=== PATIENT | female | born 1945 | race Caucasian/White ===

== ENCOUNTER 2020-03-25 10:18 | Inpatient (IN) | payer OTHER ==
[2020-03-25] VITALS (44 sets, daily range): BP systolic 102–251; BP diastolic 66–138
[~2020-03-25] VITALS: Ht 157.5 cm; Wt 64.9 kg
[2020-03-25] MEDS ORDERED: ASPIR 8181 M1 PO (10:42)
[2020-03-25] MEDS ORDERED: VITAMIN B-121000 MC2 SUBLING (10:42)
[2020-03-25 10:50] LABS: ABSOLUTE NEUTROPHILS 7.2 thou/uL (1.4-8.2); BASOPHILS 0.9 % (0.0-2.0); HEMATOCRIT 47.8 % (37.0-47.0); HEMOGLOBIN 16.1 gm/dL (12.0-15.0); LYMPHOCYTES 20.9 % (24.0-44.0); MCHC 33.6 g/dL (28.0-37.0); MCV 95.2 fL (80.0-100.0); MONOCYTES 4.2 % (1.0-8.0); PLATELET COUNT 263 thou/uL (150-400); RBC 5.02 mil/uL (4.20-5.00); RDW 14.7 % (10.5-14.5); WBC 9.8 thou/uL (4.0-11.0)
[2020-03-25 10:56] LABS: ANION GAP 11 mmol/L (7-16); BUN 17 mg/dL (7-18); CALCIUM 8.8 mg/dL (8.5-10.1); CHLORIDE 103 mmol/L (98-107); CO2 23 mmol/L (21-32); CREATININE 1.1 mg/dL (0.6-1.0); GLUCOSE 95 mg/dL (74-106); POTASSIUM 3.8 mmol/L (3.5-5.1); SODIUM 137 mmol/L (136-145)
[2020-03-25 11:00] LABS: APTT 33.3 Seconds (24.5-32.8); PROTIME 10.6 Seconds (9.3-11.4)
[2020-03-25 11:06] LABS: ALBUMIN 4.2 g/dL (3.4-5.0); SGOT 13 U/L (15-37); SGPT 15 U/L (30-65); TOTAL BILIRUBIN 0.5 mg/dL (0.2-1.0); TOTAL PROTEIN 7.8 g/dL (6.4-8.2); TROPONIN-I <0.06 ng/mL (<0.06)
--- NOTE | 2020-03-25 11:36 | EKG ---
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
[2020-03-25 13:06] LABS: CHOLESTEROL 209 mg/dL (<200); HDL CHOLESTEROL 47 mg/dL (>40); LDL CHOLESTEROL 127 mg/dL (<100); TC:HDL 4.4 Ratio (Not establshd); TRIGLYCERIDE 176 mg/dL (<150); VLDL 35 mg/dL (<40)
[2020-03-25 13:26] LABS: TSH 3.645 uIU/mL (0.358-3.740)
--- NOTE | 2020-03-25 14:37 | NUR ---
PT ORIENTED TO ROOM AND UNIT. BED LOW AND LOCKED, SIDE RAILS UPX3, CALL LIGHT IN REACH AND TELE APPLIED. WILL CONTINUE TO ASSESS.
--- NOTE | 2020-03-25 16:21 | NUR ---
PT HAVING LEFT ARM WEAKNESS AND SLURRES SPEECH. STAT CALL DR. OLIVIA AND INSTRUCTED TO DISCONTINUE IV CARDENE AND GIVE 1 LITER BOLUS NS. START 20G IV IN RIGHT WRIST AND BOLUS NS. DR OLIVIA ASSESS PT AT BEDSIDE AND INSTRUCT TO LAY PT FLAT AND. PT'S LEFT SIDED WEAKNESS AND AD SLURRED SPEECH IMPROVE BLOOD PRESSURE INCREASE. ONCE SYMPTOMS RESOLVED INSTRUCTED TO GIVE 600MG PLAVIX. WILL CONTINUE TO ASSESS.
--- NOTE | 2020-03-25 17:35 | NUR ---
WILL KEEP PT NPO EXCEPT FOR THICKENED LIQUIDS UNTIL SPEECH EVALUATE PT IN THE AM.
--- NOTE | 2020-03-25 18:13 | NUR ---
INSTRUCTED TO KEEP PT LAYING FLAT THIS EVENING AND TO KEEP SBP BETWEEN 170-190. PT PROGRESSING TOWARDS GOALS.
[2020-03-26] VITALS (40 sets, daily range): BP systolic 111–212; BP diastolic 66–882
--- NOTE | 2020-03-26 06:16 | NUR ---
PT MAKING PROGRESS TOWARDS GOALS. SEE VS FOR BP VALUES. MAINTAINING PASSIVE HYPERTENSION (SBP GREATER THAN 160) PER DR. Silver. PT DENIES ANY COMPLAINTS. DID NOT SLIGHT LEFT ARM DRIFT OVERNIGHT THAT HAS NOT WORSENED OR IMPROVED. HAS DENIED ANY PAIN OR ANY HEADACHES. CONTINUE TO MONITOR.
--- NOTE | 2020-03-26 11:25 | 2DMMODE ---
[facility] [address] [place] [address] 2 D/M-MODE ECHOCARDIOGRAM Name: MARK PORTER Room #: 246-P ADM IN M.R.#: [id number] Admission: 03/25/20 Attend Phys: Diego Harris Discharge: Date of : 49 Report #: [id number] THIS REPORT FOR: cc: FAM - No family physician/PCP FAM - No family physician/PCP Surinder Duran MD ~ APPROVED REPORT Study performed: 03/26/2020 10:29:06 EXAM: Comprehensive 2D, Doppler, and color-flow Echocardiogram Patient Location: ICU Room #: 246 Status: routine BSA: 1.68 HR: 89 bpm BP: 172/98 mmHg Rhythm: NSR Other Information Study Quality: Good Indications CVA/TIA Hypertension/HDD Echo Enhancing Agent Indication: Rule out Shunt Agent(s) / Amount(s) Used: Agitated Saline 7 cc 2D Dimensions RVDd: 28.11 mm IVSd: 13.27 (7-11mm) LVOT Diam: 20.79 (18-24mm) LVDd: 48.63 mm PWd: 14.71 (7-11mm) Ascending Ao: 31.59 (22-36mm) LVDs: 31.11 (25-40mm) Aortic Root: 31.54 mm IVC: 16.00 mm Volumes Left Atrial Volume (Systole) Single Plane 4CH: 41.47 mL Single Plane 2CH: 31.68 mL LA ESV Index: 23.00 mL/m2 Aortic Valve [facility] [place] [place] [address] 2 D/M-MODE ECHOCARDIOGRAM Name: MARK PORTER Room #: 246-P [facility] IN M.R.#: [id number] Admission: 03/25/20 Attend Phys: Diego Chu Dec Discharge: Date of : 49 Report #: [id number] AoV Peak Ino.: 1.21 m/s AO Peak Gr.: 5.90 mmHg LVOT Max P.96 mmHg LVOT Max V: 0.86 m/s MAREG Vmax: 2.40 cm2 Mitral Valve E/A Ratio: 0.8 MV Decel. Time: 235.69 ms MV E Max Ino.: 0.81 m/s MV A Ino.: 1.06 m/s MV PHT: 68.35 ms IVRT: 147.64 ms Pulmonary Valve PV Peak Ino.: 0.88 m/s PV Peak Gr.: 3.09 mmHg Pulmonary Vein P Vein S: 0.58 m/s P Vein A: 0.21 m/s P Vein D: 0.32 m/s P Vein A Dur.: 101.5 msec P Vein S/D Ratio: 1.81 Left Ventricle The left ventricle is normal size. There is normal LV segmental wall motion. There is normal left ventricular wall thickness. The left ventricular systolic function is normal. The left ventricular ejection fraction is within the normal range. LVEF is 55-60%. Grade I - abnormal relaxation pattern. Right Ventricle The right ventricle is normal size. The right ventricular systolic function is normal. Atria The left atrium size is normal. Interatrial septum is intact without evidence of ASD or PFO. The right atrium size is normal. Aortic Valve The aortic valve is normal in structure. No aortic regurgitation is present. There is no aortic valvular stenosis. Mitral Valve The mitral valve is normal in structure. Trace mitral regurgitation. No evidence of mitral valve stenosis. Tricuspid Valve The tricuspid valve is normal in structure. There is no tricuspid [facility] [email or web address] [place] [address] 2 D/M-MODE ECHOCARDIOGRAM Name: MARK PORTER Room #: 246-P [facility] IN M.R.#: [id number] Admission: 03/25/20 Attend Phys: Diego Hardin Discharge: Date of : 49 Report #: [id number] valve regurgitation noted. Pulmonic Valve The pulmonary valve is normal in structure. There is no pulmonic valvular regurgitation. Great Vessels The aortic root is normal in size. IVC is normal in size and collapses >50% with inspiration. Pericardium There is no pericardial effusion. <Conclusion> The left ventricle is normal size. LVEF is 55-60%. Interatrial septum is intact without evidence of ASD or PFO. The aortic valve is normal in structure. The mitral valve is normal in structure. Trace mitral regurgitation. The tricuspid valve is normal in structure. The pulmonary valve is normal in structure. There is no pericardial effusion. <ELECTRONICALLY SIGNED> By: Surinder Duran MD 03/26/20 1123 1123 112 Surinder Duran MD /INF
--- NOTE | 2020-03-26 12:24 | HC ---
[facility] [place] [address] CONSULTATION Name: DORI MARTE Room #: 246-P ADM IN M.R.#: [id number] Admission: 03/25/20 Attend Phys: Diego Harris Discharge: Date of : 49 Report #: [id number] THIS REPORT FOR: cc: FAM - No family physician/PCP FAM - No family physician/PCP Jorje Bray MD ~ CC: [facility] physician/PCP Diego Tolentino We were asked to see Dorijose Marte by Dr. Tolentino. HISTORY OF PRESENT ILLNESS: The patient is a 74-year-old admitted for stroke. The patient was admitted on , but the patient states that weakness began approximately 2 days previously. The patient states she was trimming a tree and fell on her left knee, gave out. She complained of left-sided weakness from the lower and upper extremity and slurred speech. The patient states that her symptoms have improved, but are not perfect. Speech is intermittently normal and slurred currently. Evaluation included a head CT scan that showed no acute abnormality. CT angiography was done and this shows 50% lesion in the right carotid bulb and a high-grade stenosis of the origin of the left common carotid from the aortic arch, but no cervical carotid lesion. There is also moderate stenosis of the origin of the left subclavian artery. The patient has been treated with Plavix and aspirin. PAST MEDICAL HISTORY: Significant for hypertension. MEDICATIONS: The patient states she does not currently have a doctor and takes only low dose aspirin and B12 at home and that these are self prescribed. ALLERGIES: None known. SOCIAL HISTORY: The patient lives alone. She is a smoker. REVIEW OF SYSTEMS: I agree with the review of systems as documented in the Emergency Department with the only abnormalities being those in the history for the left-sided weakness and slurred speech. PHYSICAL EXAMINATION: GENERAL: The patient is in bed, seems comfortable. VITAL SIGNS: Temperature 36.5, heart rate 87, respiratory rate 17, blood pressure is elevated at 212/82, O2 sat 93 on room air. HEENT: No scleral icterus, no arcus. NECK: No mass. I did not hear any bruit. CHEST: Clear. HEART: Rhythm regular. ABDOMEN: Soft. [facility] [address] [place] [address] CONSULTATION Name: DORI MARTE Room #: [facility] IN M.R.#: [id number] Admission: 03/25/20 Attend Phys: Diego Harris Discharge: Date of : 49 Report #: [id number] EXTREMITIES: No clubbing, cyanosis or edema. Does have strong rather bounding pulses consistent with her hypertension. NEUROLOGIC: We note pronator drift on the left leg. Able to move, not clear that the strength is full. Upper extremity, right side stronger than the left. Speech is somewhat slurred, but very intelligible. 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 The carotid lesion is at the origin and not something generally amenable to surgery, whether this could be stented in the Interventional Radiology lab is another question. In general, recommendation would be for chronic anticoagulation with aspirin and Plavix, but I will confer with Neurology. Thank you for the consult. <ELECTRONICALLY SIGNED> By: Jorje Bray MD 03/26/20 1224 0832 1104 Jorje Bray MD /nt
--- NOTE | 2020-03-26 16:28 | NUR ---
INITIAL ASSESSMENT: Received consult. SW reviewed chart and spoke with nursing and attending physician. Pt was admitted from home after a fall, which resulted in left sided weakness. Neuro consulted for TIA v CVA. Pt's BP being monitored closely. 5N rehab physician evaluated pt for possible admission to inpt acute rehab. Awaiting therapy evals at this time. SW spoke with pt via phone. Introduced role of SW. Pt states she lives at home alone. Prior to admission, pt was independent with ADLs. No use of DME. Pt states she has stairs at home, but she does not have to use them. Pt's dtr and son-in-law live nearby and are able to assist pt as needed. No hx of services or post-acute placement. Pt does not currently have a PCP. Pt states she has been provided with a list of [facility] primary care groups for review. Pt agreeable with considering rehab if needed. SW is following to assist as needed with discharge planning.
--- NOTE | 2020-03-26 16:54 | NUR ---
5N CONSULT RECEIVED ON THIS Pt. Pt SEEN BY REHAB PHYSICIAN DR. VERMA TODAY. Pt BEING WORKED UP FOR STROKE. Pt HAS NOT YET BEEN SEEN BY PT OR OT SERVICES. Pt MAY BE CANDIDATE FOR 5N. WILL CONTINUE TO FOLLOW ALONG WITH THIS Pt SHE PROGRESSES. THANK YOU FOR THIS CONSULT.
--- NOTE | 2020-03-26 18:17 | NUR ---
PATIENT SEEMED MORE CONFUSED THIS PM THAN USUAL. SHE WILL CLIMB OUT OF THE BED IMPULSIVELY AND NOT EASILY REDIRECTED. SHE DENIES PAIN. ALERT TO PLACE AND TIME BUT NOT SITUATION AT THIS TIME. WILL CONT WITH PLAN OF CARE.
--- NOTE | 2020-03-26 18:41 | HC ---
[facility] [place] [address] CONSULTATION Name: MARK PORTER Room #: 246-P ADM IN M.R.#: [id number] Admission: 03/25/20 Attend Phys: Diego Harris Discharge: Date of : 49 Report #: [id number] THIS REPORT FOR: cc: JEROMY - No family physician/PCP JEROMY - No family physician/PCP Renny Tolentino MD ~ CC: JEROMY physician/PCP Diego Tolentino DATE OF SERVICE: 03/25/2020 HISTORY OF PRESENT ILLNESS: This is a 74-year-old female patient who was seen by me in the Emergency Room and I talked to Emergency Room physician. Subsequently, the patient got admitted to ICU. The patient does not see any physician on a regular basis. She does not take her blood pressure and when she came to Emergency Room, her blood pressure was very high. It was 251/138. She does not know when was the last time she took her blood pressure. Two days ago, she had developed weakness on the left side and some neglect and she fell. It came in suddenly and finding is pretty consistent with CVA. I had talked to Emergency Room physician as his notes indicated I told them to do a CT angiogram after giving her a fluid bolus and a CT angiogram does not show any stenosis, then they can lower the blood pressure, but otherwise try to not lower it and keep it around 200 systolic at least. After the patient got admitted, unfortunately her blood pressure got lowered to about 129 and then I got a stat call from the nurse. I went and saw the patient and the patient was basically flaccid on the left side. Her blood pressure was running on the monitor about 114 systolic. I made the patient flat and asked the nurses to give 1 liter of fluid bolus, which they did. The patient started improving immediately and she was able to do antigravity and some anti-forced movements and subsequently, I talked to the nurses again, they indicated that she has improved even further and feel back to the baseline. She still has weakness on the left side, but that is not much different than what she came in with. REVIEW OF SYSTEMS: Positive for what looks like uncontrolled hypertension for long time. She looks like had a stroke on the left side with neglect and weakness there. That was a relevant 14-point review of system. PAST MEDICAL HISTORY: Positive for hypertension. FAMILY HISTORY: Noncontributory. SOCIAL HISTORY: She smokes. [facility] [address] [place] [address] CONSULTATION Name: MARK PORTER Room #: 246-P [facility] IN M.R.#: [id number] Admission: 03/25/20 Attend Phys: Diego Harris Discharge: Date of : 49 Report #: [id number] PHYSICAL EXAMINATION: The patient's examination was carried out many times. On my last examination, she still has weakness on the left side, but that was about the same when I saw her in the Emergency Room. She has improved from the profound weakness. IMPRESSION: This patient most likely had right hemispheric cerebrovascular accident. She did have a CT angiogram done and that showed right carotid stenosis, although it is not critical, but she has critical carotid stenosis on the left side where it arises from the aorta. I told the nurses to keep her blood pressure at least 160 what it should be. They can try to keep it around 162-200. Even after the fluid bolus, the blood pressure has come only to about 150 systolic, but her symptoms have mostly resolved, indicating she can tolerate that. I gave her Plavix. I gave her the loading dose. I will also give her aspirin. Main management is that we should lower the blood pressure slowly, but not very fast. We will try to get an MRI done. This patient is not a TPA candidate because she had a stroke 2 days ago and she fortunately improved pretty significantly after the bolus. A total of about 50 minutes was spent taking care of this patient today and majority of that time was spent counseling and coordinating care. <ELECTRONICALLY SIGNED> By: Renny Tolentino MD 03/26/20 1841 [id number] 16 Renny Tolentino MD /nt
[2020-03-27] VITALS (16 sets, daily range): BP systolic 136–202; BP diastolic 66–156
--- NOTE | 2020-03-27 04:29 | NUR ---
PATIENTS CARES WERE ASSUMED AT SHIFT CHANGE. PATIENT WAS ASSESSED AND MEDS WERE PASSED. PATIENTS BP HAD A JUMP THIS SHIFT 190/103. THIS PATIENT HAD NO IV ACCESS DUE TO THE MEDS ON THE DEC THE IV SHOUD HAVE BEEN REPLACED. HYDROLOZINE 10 MG WAS GIVEN. RESPRITORY SIS COME tight iv just started on he right forarm for iv push medications this patient is not in restrans as documented that is an error hourly rounds were done . the bed is in a low and lock position
--- NOTE | 2020-03-27 11:03 | NUR ---
Nutrition: pt admitted S/P fall with left sided weakness. Neuro indicates Right CVA. Wound risk indicated however nsg reports no wounds present. ST following for mild/moderate dysphagia currently requiring mech altered diet. Pt reports she likes most foods and is not picky. Indicates UBW as 150# and current weight is 147#. 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 Elevated Chol and Trigs per labs, if pt eating >75% of meals, rec add heart healthy diet restrictions. Low risk.
--- NOTE | 2020-03-27 11:04 | NUR ---
ASSUMED CARE @ 0700 03/27/20, PT ASSESSMENTS AND VSS COMPLETE PER ORDERS AND DOCUMENTED. DR VIVAR HERE TO ROUND, ORDERS FOR M/S TELE TRANSFER PUT IN. RN VOICES THAT PT SBP IN THE 170-180, RN TOLD ONLY TREAT BP IF SBP ABOVE 200. SPEECH THERAPIST HERE TO EVALUATE AND TREAT. WILL CONT TO MONITOR.
--- NOTE | 2020-03-27 15:21 | NUR ---
MAYELA reviewed chart and spoke with attending physician. Pt remains in ICU. PT/OT ordered to evaluate pt. JenaeN is following for possible admission to in acute rehab. Will need insurance authorization. MAYELA contacted occupational therapist rehab manager to determine if they can accept pt. Awaiting input from . MAYELA is following to assist as needed with discharge planning.
--- NOTE | 2020-03-27 18:42 | NUR ---
PT CARE ASSUMED APPROX 1830. PT ALERT AND ORIENTED X4. DENIES PAIN AND SOA. DENIES ANY NEEDS AT THIS TIME. NO DISTRESS NOTED.
[2020-03-28] VITALS (8 sets, daily range): BP systolic 173–224; BP diastolic 72–150
--- NOTE | 2020-03-28 08:01 | NUR ---
ASSUMED PT CARE AT 1900, PT IS AWAKE, ALERT AND ORIENTEDX4, MAKES NEEDS KNOWN, DENIES PAIN OR SOB, ASSESSMENTS CHARTED, BP ELEVATED, TEST DESKMAN NOTIFIED, MEDICATIONS GIVEN ORDERED, LEFT SIDED WEAKNESS, REMAINED STABLE THROUGH THE NIGHT, PASSED ON REPORT TO DAY NURSE
[2020-03-28] MEDS ORDERED: CLOPIDOGREL75 MG PO (09:06)
[2020-03-28] MEDS ORDERED: LIPITOR 20 MG T20 M1 PO (09:06)
[2020-03-28] MEDS ORDERED: ASA5UEC PO (09:07)
[2020-03-28] MEDS ORDERED: NORVASC5 MG PO (09:07)
--- NOTE | 2020-03-28 13:22 | NUR ---
rec call from phys to transport patient to [facility] for possible stent placement, intercranial stenosis. sp with Anna at [facility] transfer team. Faxed scanned id medical cards and face sheet. Radiology uploaded to cloud. Anna returned call to casemgt and reports phys at [facility] and Dr Swartz spoke. Patient to determine medical management of patient first here at [facility] with plavix. At this time transfer on hold. 5N notified patient is not transferring at this time. Chart copy with chart and id medical cards scanned on chart.
--- NOTE | 2020-03-28 14:59 | NUR ---
PATIENT SEEN BY DR. VERMA AND IS A CANDIDATE FOR ACUTE REHAB. PATIENT CAN BE ACCEPTED TO 5N/ACUTE REHAB WHEN MEDICALLY STABLE PENDING INSURANCE AUTHORIZATION AND BED AVAILIBILITY. WILL CONTINUE TO FOLLOW. GMAT TUTOR INFORMED. THANK YOU FOR THIS REFERRAL.
--- NOTE | 2020-03-28 17:54 | NUR ---
PT CARE ASSUMED APPROX 0700. ASSESSMENT CHARTED. PT DENIES PAIN AND SOA. VS WITHIN TARGETED PARAMETERS. PT TOLERATING POC. CLINICAL UPDATE GIVEN TO PT'S DAUGHTER ANDREIA. SHE DENIES QUESITONS OR CONCERNS REGARDING PT'S POC AFTERWARDS. PT DENIES WELL. TRANSFER TO [facility] CANCELED AT THIS TIME. PT AWARE. UP WITH MIN ASSIST TO BSC. NO DISTRESS NOTED.
[2020-03-29 00:17] VITALS: BP 186/84
[2020-03-29 03:33] VITALS: BP 194/89
--- NOTE | 2020-03-29 05:56 | NUR ---
ASSUMED CARE OF PATIENT AT 1900. UPON ASSESSMENT PATIENT STATED THAT SHE HAD TAKEN OUT HER IV BECAUSE IT WAS ALL READY COMING OUT. PATIENT WAS ABLE TO PIVOT TO BEDSIDE COMMODE AND REPOSITION SELF IN BED WITH 1A. SHORTLY BEFORE 0300 CALLED FOR AN UPDATE ON PATIENT. RECEIVED ORDERS TO ADMINISTER NS BOLUS AND START CONTINUOUS FLUIDS. PHYSICIAN ALSO REINFORCED ORDERS TO NOT TREAT HYPERTENSION UNLESS SBP >200 AND THAT PATIENT SHOULD LIE FLAT. WILL PASS INFORMATION ON TO NEXT SHIFT. AFTER SALINE BOLUS, PATIENT WAS ABLE TO LIFT LEFT ARM WHICH WAS AN IMPROVEMENT FROM ONLY A WEAK LEFT HAND SECOND FLOOR OPERATOR BEFROE BOLUS. PATIENT PROGRESSING SLOWLY TOWARDS GOALS.
[2020-03-29 07:30] VITALS: BP 213/95
--- NOTE | 2020-03-29 08:37 | NUR ---
ASSUMED CARE OF PT AT SHIFT CHANGE, A&0X4, IS NOT IMPULSIVE, LEANING TO THE LEFT, IS FRUSTRATED, DOES WELL FOOD SET UP AND BIB. NO ISSUES/NEEDS AT THIS TIME. SEE SEPARATE INTERVENTIONS FOR ASSESSMENTS. CARDIAC MONITORED. ENCOURAGED HER TO USE CALL LIGHT FOR ANY NEEDS AND SHE CAN. SHE MENTIONS ALL STAFF HAVE BEEN EXCELLENT.
--- NOTE | 2020-03-29 10:09 | NUR ---
ENGINEERING TEAM SUPERVISOR TO SEE PATIENT. PT UNAVAILBLE AT THIS TIME. I WILL RETURN LATER THIS AFTERNOON.
--- NOTE | 2020-03-29 11:04 | NUR ---
NOTED D/C: NEURO SPOKE W/PT AND SAID NEITHER [facility] OR NEITHER [facility] WILL TAKE PT AT THIS TIME; NOT A CANDIDATE HE ALSO SAID HE WANTED HER FLAT ALL DAY (SBP 200S THIS A.M.) AND WANTED HER B/P TO MAINTAIN >160. LET PHYSICIAN KNOW WHO WROTE AN ORDER TO D/C
[2020-03-29 11:30] VITALS: BP 168/99
--- NOTE | 2020-03-29 11:39 | NUR ---
PER DR. VIVAR, PLAN FOR PATIENT TO D/C TO [facility] THIS DATE. NEWCOMER HOSTESS SPOKE WITH PATIENT REGARDING REHAB AT [facility]. PATIENT HAS BEEN VERY HAPPY WITH THE NURSING CARE AND THERAPY RECEIVED HERE AT [facility] AND LIVES CLOSE TO HOSPITAL. PATIENT EXPRESSED THAT SHE WOULD LIKE TO RETURN TO [facility] FOR ACUTE REHAB IF NEEDED AT D/C FROM [facility]. PATIENT GIVEN BROCHURE WITH LIAISON'S CARD ATTACHED. PATIENT APPROVED PLAN FOR LIAISON TO CONTACT [facility] REGARDING TRANSFER BACK TO [facility] FOR REHAB CARE AT DISCHARGE. PATIENT WOULD LIKE TO MAKE SURE THAT HER DAUGHTER WAS AWARE/INVOLVED IN PLANNING. PRECISION CROP MANAGER CONTACTED AND INFORMATION ABOVE RELAYED. THANK YOU FOR THIS REFERRAL.
--- NOTE | 2020-03-29 11:56 | NUR ---
The attending has spoken with [facility] transfer team again this morning. Dr. Royal Marte can accept the pt pending a bed later today on their neuro ICU. Chart copy is being updated to send with the pt. Transfer from being completed and signed by the pt. [facility] to be arranged once bed confirmed and nursing gives report. Pt aware and updated her family.
--- NOTE | 2020-03-29 11:59 | NUR ---
AUTOMOBILE DETAILER TO SEE PATIENT. PT CONCERNED ABOUT POSSIBLE TRANSFER. PATIENT STATES "THEY ARE NOT GOING TO GET RID OF ME WITHOUT TELLING ME WHAT IS GOING ON". PT APPEARS AGGITATED. THIS RN TRIES A DE-ESCALATES THIS SITUATION WITH SUCCESS. I EXPLAINED THAT I WOULD CHECK INTO IT.I ALSO EXPLAINED WE WOULDNT BE TRANSFERRING HER ANYWHERE WITHOUT HER CONSENT AND HER FAMILY CONTACTED. I LEFT THE ROOM, I SPOKE WITH THE PATIENTS NURSE AND SHE STATED THEY ARE IN FACT TRANSFERRING HER. I WILL CONTACT DR PERSAUD OR DR VIVAR AND ASK FOR THEM TO COME TO ROOM AND EXPLAIN THE SITUATION.
--- NOTE | 2020-03-29 12:18 | NUR ---
GROUP CAPTAIN RETURNS TO ROOM. DR VIVAR ON TELEPHONE EXPLAINING PLAN OF CARE. PT VERBALIZES UNDERSTANDING AND AGREES WITH TRANSFER. TOY TRAINS AND ACCESSORIES SALESPERSON ALSO AT BEDSIDE AND STATES SHE WILL BE CALLING HER DAUGHTER. I EXPLAINED TO PATIENT THAT NO PROCEDURE WOULD BE COMPLETED WITHOUT AM EXPLANATION OF RISKS AND BENEFITS PRIOR TO HER AUTHORIZATION. PT UNDERSTANDS. AWAITING TRANSFER
[2020-03-29 16:30] VITALS: BP 177/97
[2020-03-29 20:34] VITALS: BP 198/87
[2020-03-30] VITALS (9 sets, daily range): BP systolic 168–212; BP diastolic 58–109
--- NOTE | 2020-03-30 06:50 | NUR ---
No change in neuro status. 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 BP at MN 212/105 with HR in the 80's ,SR. Dr. Tolentino notified , IV fluids dc'd and CARDIOLOGY TEACHER calleed for prn BP med. Lopressor 2.g mg IV given at 0030 repeat BP after med 203/90. This am BP of 208/93 with HR of 83. CARDIOLOGY TEACHER notified and another dose of Lopressor 2.5 mg given. BP rechecked 186/85 with HR of 71. Received a call from [facility]' transfer RN (Elinor )to get an update on pt. and to inform me that there is no bed available still at this time. Tylenol given at HS for back pain from lying flat on bed with good relief. Also assisted to reposition for comfort. Voided per bedpan and had one episode of bowel incontinence stating she fell asleep and dind't realize she had to go. Will continue to monitor.
[2020-03-30 11:16] LABS: CALCIUM 8.4 mg/dL (8.5-10.1); CREATININE 0.8 mg/dL (0.6-1.0)
[2020-03-30 11:23] LABS: POTASSIUM 2.6 mmol/L (3.5-5.1)
--- NOTE | 2020-03-30 16:25 | NUR ---
ON-GOING ASSESSMENT: CM REVIEWED CHART AND SPOKE WITH TRANSFER TEAM AT [facility] [phone]. PLAN IS FOR PT TO STILL TRANSFER TO [facility] WHEN A BED IS AVAILABLE AND THEY HAVE THE CONTACT TO THE NURSES STATION ON 2N AND WILL NOTIFY NURSE. POSSIBLE BED AVAILABLE OVER THE WEEKEND. CM UPDATED PATIENT AND HER DAUGHTER HEAVEN [phone]. [facility] FORM IS ON THE CHART AND WILL NEED TO BE FAXED TO [facility] [phone], THEN CONTACT [facility] [phone] TO ARRANGE TRANSPORT. COMPLETE TRANSFER FORM WELL. CHART COPY WILL NEED TO BE SENT WITH PT.
--- NOTE | 2020-03-30 19:54 | NUR ---
ASSUMMED PT CARE AT APPROXIMATELY 0700. PT A&O X4. ASSESSMENT CHARTED. FALL PRECAUTIONS IN PLACE. PT DENIES HAVING CHEST PAIN. PT DENIES HAVING SOB. PT STATED SHE HAD BACK PAIN. PT RECEIVED ANALGESICS. PT STATED ANALGESICS HELPED RELIEVE PAIN. BP CONTROLED BETWEEN PARAMETERS SET BY NEURO. PER CASE MANAGEMENT, THERE IS NOT A BED AVAILABLE AT [facility]. INFORMED DR. VIVAR OF PT'S HYPOKALEMIA. DR. VIVAR ENTERED NEW ORDERS. NEW ORDERS IMPLEMENTED. PT COMFORTABLE IN BED. PT DENIES HAVING FURTHER CONCERNS. EDUCATED PT ABOUT POC. PT STATED UNDERSTANDING AND DENIED HAVING FURTHER QUESTIONS. VITAL SIGNS STABLE. BLOOD SUGARS STABLE.
[2020-03-31] VITALS: BP 188/99
[2020-03-31 04:30] VITALS: BP 180/104
--- NOTE | 2020-03-31 04:41 | NUR ---
ASSUMED PATIENT CARE AT 1845. VITAL SIGNS STABLE WITH PATIENT HAVING NO COMPLAINTS OF PAIN OR NAUSEA. BLOOD PRESSURE WITHIN PROVIDERS PARAMETERS THROUGHOUT SHIFT. PATIENT FULLY ALERT AND ORIENTED THROUGHOUT SHIFT. INITIAL NIH SCORED AT EIGHT WITH NO CHANGE THROUGHOUT SHIFT. SWALLOW PRECAUTIONS FOLLOWED. FREQUENT SKIN CARE FOR INCONTINENCE WITH PATIENT FREQUENTLY REPOSITIONING SELF IN BED. POSSIBLE TRANSFER TODAY. CONTINUE PLAN OF CARE.
[2020-03-31 06:12] LABS: CALCIUM 8.4 mg/dL (8.5-10.1); CREATININE 0.9 mg/dL (0.6-1.0); POTASSIUM 3.2 mmol/L (3.5-5.1)
[2020-03-31 08:00] VITALS: BP 150/93
[2020-03-31 12:00] VITALS: BP 173/100
[2020-03-31 16:00] VITALS: BP 174/101
--- NOTE | 2020-03-31 17:22 | NUR ---
ASSESSMENT CHARTED. PT ALERT AND ORIENTED. RECEIVED SCHEDULED PAIN MED FOR BACK PAIN. PARTICIPATED IN OCCUPATION THERAPY. STILL WAITING FOR AN OPEN BED AT [facility]. NO NEW ORDERS. WILL CONTINUE TO MONITOR.
[2020-03-31 20:20] VITALS: BP 193/87
[2020-04-01 00:15] VITALS: BP 193/84
[2020-04-01 04:20] VITALS: BP 187/90
[2020-04-01 08:00] VITALS: BP 202/70
[2020-04-01 12:26] VITALS: BP 167/77
[2020-04-01 16:00] VITALS: BP 194/92
--- NOTE | 2020-04-01 19:39 | NUR ---
ASSUMED CARE AT CHANGE OF SHIFT. ALERT X4, SLURRED SPEECH PRESANT, DENIES SOB, DENIES CHEST PAIN OR HEADACHE. CHRONIC BACK PAIN MANAGED WITH SCHEDULED PAIN MED. PT COMPLAINT WITH LAYING FLAT C EXCEPTION OF MEALS AND MEDS. PT UNDERSTANDS PER HER CONVERSATION C NEUROLOGIST SHE WILL DC TO REHAB. PT HOPES TO DC TOMORROW. CALL LIGHT AND PERSONAL ITEMS IN REACH.
[2020-04-01 20:33] VITALS: BP 190/79
[2020-04-02 05:20] VITALS: BP 183/88
--- NOTE | 2020-04-02 05:38 | NUR ---
ASSUMED CARE OF PT AROUND 0130 . IV RESTARTED RIGHT FA. PT INC, OF URINE IN LG AMTS I THE BED. INSTRUCTED ON FALL PRECAUTIONS. BED ALARM ON. PT LAYING FLAT ORDERED. BP CONTINUES TO BE ELEVATED PER PARAMETERS..
--- NOTE | 2020-04-02 06:33 | NUR ---
PT PROGRESSING SLOWLY TOWARDS D/C. BP STIOLL ELEVATED BUT WITHIN PARAMETERS. HOB FLAT. PT IN GOOD SPIRITS. SHE HAS SOME MOVEMEBT TO LLE. NEW IV PLACED RIGHT HAND 22GU. HRR. LCTA AND UNLABORED ON RA. BED DOWN CALL LIGHT IN REACH BED ALARM IS ON.
[2020-04-02 07:30] VITALS: BP 169/65
[2020-04-02 09:45] LABS: CALCIUM 9.2 mg/dL (8.5-10.1); CREATININE 0.7 mg/dL (0.6-1.0)
[2020-04-02 09:47] LABS: POTASSIUM 2.9 mmol/L (3.5-5.1)
[2020-04-02 11:30] VITALS: BP 186/87
--- NOTE | 2020-04-02 15:30 | HC ---
[facility] [place] [address] CONSULTATION Name: MARK PORTER Room #: 214-P ADM IN M.R.#: [id number] Admission: 03/25/20 Attend Phys: Diego Harris Discharge: Date of : 49 Report #: [id number] THIS REPORT FOR: cc: JEROMY - No family physician/PCP JEROMY - No family physician/PCP Royal Martinez MD ~ CC: [facility] physician/PCP Diego Tolentino DATE OF SERVICE: 03/26/2020 HISTORY OF PRESENT ILLNESS: The patient is a 74-year-old white female who was admitted with left-sided weakness after a mechanical fall. She was apparently trimming a tree when her left knee gave out. She had problems with left hand weakness and was dropping objects. Upon admission, she was noted to have uncontrolled hypertension. MRI of the brain was obtained, which showed acute lacunar infarcts in the right garcia radiata. She had blood pressures that were up to 196/102 as well as 212/102. She is currently in the intensive care unit being treated for malignant hypertension. Neurology has been consulted. She is noted to have left internal carotid artery stenosis, 90% at the origin. PAST MEDICAL HISTORY: Includes hypertension, noted to be malignant hypertension. HABITS: History of tobacco abuse. Current every day smoker, one-half pack per day, history of alcohol use on special occasions. MEDICATIONS: Please see the full medication listing. SOCIAL HISTORY: Lives in a house, 3 story, but stay on the main floor without steps. Daughter and mbenybiy-da-gyy are 5 minutes away. REVIEW OF SYSTEMS: Did not offer any current complaints of chest pain, shortness of breath, or abdominal discomfort. She notes that she has when she attempts to get up. PHYSICAL EXAMINATION: GENERAL: She is a pleasant 74-year-old small statured white female seen in the intensive care unit. She is currently being closely monitored regarding her blood pressure with readings as noted above. VITAL SIGNS: Last reading was 204/99. HEENT: Facies revealed a mild depressed left nasolabial fold. EOMs appeared to be full. She has slightly slurred speech. EXTREMITIES: She has functional range of motion of both upper and lower extremities, left upper extremity coordination appeared decreased with [facility] [address] [place] [address] CONSULTATION Name: MARK PORTER Room #: 214-P [facility] IN M.R.#: [id number] Admission: 03/25/20 Attend Phys: Diego Harris Discharge: Date of : 49 Report #: [id number] and fine finger dexterity. Strength is probably a grade 4-/5. Left lower extremity is probably a grade 4-/5. Right upper and right lower extremity appeared to have functional range of motion and strength without obvious focal weakness. She has not gotten up yet as far as therapies with her medical precautions. ASSESSMENT: A 74-year-old white female with the following problem list: 1. Acute infarcts, right brain garcia radiata. 2. Left-sided weakness with fall. 3. Malignant hypertension, currently being monitored in the intensive care unit. 4. Left internal carotid artery stenosis, 90% at the origin. 5. Acute renal insufficiency. 6. Tobacco abuse. 7. Lives alone, but has close family support. RECOMMENDATIONS: Therapy evaluations will be undertaken as she further medically stabilizes. She is certainly may warrant an acute in-hospital inpatient rehabilitation stay as she further medically stabilizes. We will be glad to follow along with you regarding her rehab therapy needs. <ELECTRONICALLY SIGNED> By: Royal Martinez MD 04/02/20 1530 [id number] Royal Martinez MD /[facility]
[2020-04-02 15:32] VITALS: BP 146/92
--- NOTE | 2020-04-02 16:50 | NUR ---
Plan for [facility] is cancelled per phys. spoke with [facility] they evaled and accepting clinically. They are in process of seeking auth. Sp with patient and dtr Juanita they are in agreement with planned for acute rehab [facility]. Reviewed process for [facility] and dc timeframe with dtr. will update dtr regarding authorization of unit.
--- NOTE | 2020-04-02 17:53 | NUR ---
PATIENT IS A CANDIDATE FOR ACUTE REHAB. PATIENT HAS EXPRESSED DESIRE TO COME TO [facility] FOR ACUTE REHAB STAY. PATIENT'S INSURANCE CONTACTED AND AUTHORIZATION REQUESTED THIS DATE. WILL AWAIT INSURANCE DECISION. FISH MACHINE FEEDER UPDATED. THANK YOU FOR THIS REFERRAL.
--- NOTE | 2020-04-02 18:02 | NUR ---
[facility] 0700. ALERT X4, DENIES PAIN, DENIES SOB, GRADULE LOWER OF BP PER DR VIVAR/NEUROLOGIST. SBM [address] IN BEDSIDE RECLINGER WITH PT. PT UNDERSTAND SHE IS BEING ASSESSED FOR REHAB. CONTIENT TO BEDPAN OR COMMODE. CALL LIGHT AND PERSONAL ITEMS IN REACH.
[2020-04-02 19:53] VITALS: BP 160/82
[2020-04-03 05:20] VITALS: BP 127/77
--- NOTE | 2020-04-03 05:30 | NUR ---
ASSUMED PT CARE AT 1900. PT IS ALERT AND ORIENTED, NO SIGN OF DISTRESS NOTED IN PT. PT IS STABLE. ELEVATED BLOOD PRESSURE NOTED. FALL PRECAUTION IN PLACE. ASSESSMENT COMPLETED AND DOCUMENTED. DENIES ANY PAIN. CALL LIGHT WITHIN REACH. SCHEDULED MEDS ADMINISTERED TO PT. TOLERATED PO INTAKE. CONTINUE TO MONITOR PT. DENIES ANY NEEDS AT THIS TIME.
[2020-04-03 08:10] VITALS: BP 182/101
[2020-04-03 11:55] VITALS: BP 168/97
--- NOTE | 2020-04-03 15:29 | NUR ---
patient to transfer to [facility] today to room 511. Notified dtr and discussed bringing clothes and team meeting.
--- NOTE | 2020-04-03 15:45 | NUR ---
Assumed pt care this am, left sided weaknees noted. FAll precautions in place. Continent of both bowel and bladder, kika used the bed cho and was able to work with PT and OT, sat on the recliner and used the commode. POC followed with no signs or verbalizations of distress noted. Diet and medications are well tolerated. REport given to [facility] nurse pt is being dc and going to [facility] in room 511
== END 2020-04-03 16:43 | DRG 64 ==
LOC: ER 10:18 → ICU 12:47 → EROBS 12:47 → ICU 13:52 → 2N 03-27 08:25
PROVIDERS: Emergency Medicine; ADMIT Hospitalist; ATTEND Hospitalist
DX: I63.81 Other cerebral infarction due to occlusion or stenosis of small artery (principal); N17.0 Acute kidney failure with tubular necrosis; I69.354 Hemiplegia and hemiparesis following cerebral infarction affecting left non-dominant side; F17.210 Nicotine dependence, cigarettes, uncomplicated; I65.22 Occlusion and stenosis of left carotid artery; S80.02XA Contusion of left knee, initial encounter; E87.6 Hypokalemia; X58.XXXA Exposure to other specified factors, initial encounter; Y93.89 Activity, other specified; Z79.82 Long term (current) use of aspirin; Y92.89 Other specified places as the place of occurrence of the external cause; Y99.8 Other external cause status; Z79.4 Long term (current) use of insulin; Z82.49 Family history of ischemic heart disease and other diseases of the circulatory system; Z79.899 Other long term (current) drug therapy
CPT/HCPCS: 10078; 10081

== ENCOUNTER 2020-04-03 10:43 | Inpatient (IN) | payer OTHER ==
[~2020-04-03] VITALS: Ht 157.5 cm; Wt 68.0 kg
[~2020-04-03 10:43] MED LIST: ASA5UEC PO; ASPIR 8181 M1 PO; CLOPIDOGREL75 MG PO; LIPITOR 20 MG T20 M1 PO; NORVASC5 MG PO; VITAMIN B-121000 MC2 SUBLING
[2020-04-03 17:30] VITALS: BP 181/893
[2020-04-03 18:30] VITALS: BP 173/83
--- NOTE | 2020-04-03 18:46 | NUR ---
Patient admitted at 1645 for Acute Infarct with left sided weakness and fall. She is alert and oriented x's 4, LSCTA, BS x's 4, abd soft and non-tender, skin is clean, warm dry and intact. Patient's blood pressure elevated at 181/93, Pulse 85; she is asymptomatic. FIELD PROJECT MANAGER Nu gave T.O. for prn. This was not utilized as patient's BP noted to be 173/83, P 85. Patient has scheduled BP medications at 2100. On-coming RN notified, to continue to monitor. Patient pleasant and cooperative. She needs assist x's 1-2 with gait belt. She can stand and pivot with assist. Patient expressed worry over the possibility of having urinary accidents due to "staff not coming to help." Patient was on another Unit prior to this admission, reports "staff wouldn't come when I called." Educated patient to report this to paramedic supervisor if this happens. Patient voices an understanding.
[2020-04-03 19:15] VITALS: BP 151/92
--- NOTE | 2020-04-04 02:14 | NUR ---
ONE TO TWO PERSONS NEEDED TO ASSIST OUT OF BED DUE TO RIGHT SIDED WEAKNESS PIVOT TO BSC WITH GAIT BELT, PATIENT STATES SHE APPRECIATES US COMING TO HELP HER QUICKLY SHE NEEDED TO VOID RIGHT AWAY. NORVASC GIVEN, BP MOTED TO BE HIGHER EARLIER IN THE AFTERNOON. LARGE LOOSE STOOL TIMES ONE. FBS 98 AT HS, NO TREAMENT. TYLENOL OBTAINED FOR BACK PAIN RATED AT 5/10
[2020-04-04 05:32] LABS: HEMATOCRIT 45.6 % (37.0-47.0); HEMOGLOBIN 15.2 gm/dL (12.0-15.0); MCHC 33.3 g/dL (28.0-37.0); MCV 96.1 fL (80.0-100.0); RBC 4.74 mil/uL (4.20-5.00); RDW 14.1 % (10.5-14.5); WBC 8.9 thou/uL (4.0-11.0)
[2020-04-04 06:04] LABS: CALCIUM 8.7 mg/dL (8.5-10.1); CREATININE 0.9 mg/dL (0.6-1.0); POTASSIUM 3.3 mmol/L (3.5-5.1)
[2020-04-04 08:00] VITALS: BP 149/88
--- NOTE | 2020-04-04 10:42 | NUR ---
ASSUMED CARE AT 0700. PATIENT IS ALERT AND ORIENTED X4. PATIENT HAS LEFT SIDED WEAKNESS. PATIENT IS UP TO THE BSC TO VOID ABMER COLORED URINE. LUNGS ARE CLEAR. ABD IS SOFT WITH BSX4. PATIENT IS ON THIN LIQUIDS. PATIENT IS UP IN BED FOR MEALS. FALL AND SAFETY PROTOCOLS IN PLACE. DENIES PAIN AT THIS TIME. CONTINUES TO PROGRESS SLOWLY. WILL CONTINUE TO MONITER.
--- NOTE | 2020-04-04 10:49 | NUR ---
Case opened to follow for dc planning. Pt known to cm from acute inpatient stay. Pt admitted to acute rehab due to acute infarcts with lt sided paralysis. The pt is a&ox4 and her speech has improved. She is motivated to work with therapies. Clipper Operator spoke with her dtr Juanita today to re-introduce the cm role and discuss potential dc planning needs. Juanita aware of team conf on Tuesdays and notes that she and her 12 year old dtr will be with the pt at tn. She is setting up her home office at the pt's home and will be staying with her this summer. She is aware that they may need to hire in some private duty support as well. HH and dme referrals discussed. The pt did not use any dme prior to her stroke and was indep with gait and adl's. She does not have a hh or snf history. Juanita was provided with [facility] and Dr. Trinidad office numbers to work on setting up a new PCP appt as the pt did not have a pcp prior to admission. CM to meet dtr at the hospital entrance at noon today with HH listing/private duty resources as dtr is bringing pt additional clothing from home. The pt lives in a 3 story home with laundry in the basement. Her dtr indicates that the pt has a bedroom and bath on the main level and she would stay on this level. Dtr to take over laundry, homemaker chores and errands for the pt. Pt's dtr to measure the doorways as well and is open to a home eval or coming in for training with therapy as needed. Support provided. Therapy evals are underway. Will f/u with the pt and her dtr next week after team conf.
[2020-04-04 19:21] VITALS: BP 136/80
--- NOTE | 2020-04-05 04:22 | NUR ---
ASSESSMENT: PT REMAINS ALERT AND ORIENT TIMES THREE. UPPER LEFT EXTREMITY FLACCID. DENIES PAIN. SOB AND N/V. VSS, AFEBRILE. TAKES MEDS WITH APPLE SAUCE. UP WITH 2 ASSIST. SLEPT WELL DURING THE NIGHT. C/O SLIGHT HEADACHE, TYLENOL GIVEN WITH GOOD RELIEF. SLOW PROGRESS TOWARDS DC GOAL, WILL CONTINUE TO MONITOR.
--- NOTE | 2020-04-05 05:57 | NUR ---
ASSESSMENT: PCT ACCOMPANIED PT TO BSC WITH MAIA. ACCORDING TO PCT BENI, PT WAS ASSISTED TO THE FLOOR WITH EASE. PT ATTEST TO THE FACT THAT SHE WAS NOT HURT. DID NOT HURT HERSELF. THERE WERE NO WOUNDS, REDNESS, BROKEN SKIN NOTED OVER PT'S BODY. PT STATE THAT HER RIGHT LEG JUST "GAVE OUT" AND "BUCKLED". PT IS BACK IN BED AND APPRAISAL SPECIALIST KATHY WITH BE NOTIFIED OF SAID EVENT.
[2020-04-05 08:00] VITALS: BP 138/80
[2020-04-05 09:17] VITALS: BP 138/80
--- NOTE | 2020-04-05 14:30 | NUR ---
cm received phone call from daughter katelynn rt needing cm to set up primary care dr at [facility] for mom and dr office said case repairer has to set up appointment that is what elana said yesterday. Education that i can fax referral but until have team meeting and set date not going to be able to set an appointment for her to go to, " oh i thought they would see her there, i was told she needs this done david"/katelynn. re-education that cm can touch base with [facility] once have dc date and set up appointment. she cant have outpt appointment and be in acute rt insurance. " ok thank you "/katelynn.
--- NOTE | 2020-04-05 18:39 | NUR ---
ASSUMED CARE OF PT AT 0715. PT IS A&OX4. IS ON ROOM AIR. REPORTED BACK PAIN THIS AM THAT WAS MANAGED WITH PAIN MEDS & OTHER THERAPEUTIC TECHNIQUES. HAS LEFT SIDED FLACCIDITY IN UPPER EXTREMITY & WEAKNESS ON LOWER EXTREMITY. RIGHT LEG MATTHEW. IS UP WITH MAX ASSIST OF 2, GB, PIVOT TO BSC. FALL PRECAUTIONS & HOURLY ROUNDING MAINTAINED THIS SHIFT. PT HAS GOOD BED MOBILITY. IS ABLE TO REPOSITION SELF & PULL SELF UP IN BED WITH SOME ASSISTANCE. IS STABLE. IS CURRENTLY LYING IN BED. WATCHING TV. CALL LIGHT WITHIN REACH. WILL CONTINUE TO MONITOR.
[2020-04-05 19:50] VITALS: BP 163/93
[2020-04-05 20:00] VITALS: BP 130/49
--- NOTE | 2020-04-06 05:02 | NUR ---
UP TO BSC WITH MAX ASSIST DUE TO LEFT HEMIPARESIS. 2 LOOSE STOOLS OVERNIGHT. PLEASANT
[2020-04-06 08:08] VITALS: BP 142/81
[2020-04-06 09:00] VITALS: BP 142/81
--- NOTE | 2020-04-06 14:14 | NUR ---
ASSUMED CARES AT 0700. PT AWAKE, ALERT AND ORIENTED*4. C/O MILD LOW BACK PAIN, REPOSITIONED FROM CHAIR TO BED. VITALS REMAIN STABLE. PT CONTINUES TO HAVE LEFT SIDED HEMIPARESIS. ABD SOFT AND ROUND, *1 LOOSE STOOL TODAY. PT UP WITH 2 MAX ASSIST, GB AND PIVOT TRANSFERS. PARTICIPATED IN ALL THERAPIES AND TOLERATED WELL. Q1H VISUAL CHECKS. CALL LIGHT WITHIN REACH. FALL PRECAUTIONS IN PLACE
[2020-04-06 20:30] VITALS: BP 139/83
--- NOTE | 2020-04-07 03:09 | NUR ---
UP TO BSC WITH MAX 1P TRANSFER DUE TO LEFT SIDED WEAKNESS. PLEASANT, SWALLOWING MEDS WHOLE WITH APPLESAUCE. HS BLOOD SUGAR = 121
--- NOTE | 2020-04-07 14:30 | NUR ---
ASSUMED CARES AT 0700. PT AWAKE, ALERT AND ORIENTED*4. C/O BACK PAIN, PAIN MEDICATION ADMINISTERED NEEDED. VITALS REMAIN STABLE. PT CONTINUES TO HAVE LEFT SIDED HEMIPARESIS. UP WITH MAX ASSIST, GB AND W/C AND TOLERATES WELL. PARTICIPATED WELL IN ALL THERAPIES. Q1H VISUAL CHECKS. CALL LIGHT WITHIN REACH. FALL PRECAUTIONS IN PLACE
[2020-04-07 19:09] VITALS: BP 140/86
[2020-04-07 19:45] VITALS: BP 167/80
--- NOTE | 2020-04-08 01:49 | NUR ---
ASSESSMENT: PT REMAIN ALERT AND ORIENT TIMES FOUR. PT STATE THAT SHE GETS BORED BECAUSE THERE'S NOTHING TO DO BESIDES LAY AROUND IN BED. PT LIKE HER THERAPY SESSIONS AND WISH THAT THEY WERE THROUGH THE DAY. LEFT SIDE FLACCID, LEFT LE WEAKNESS. UP WHT MAX ASSISTANCE TO BSC. DENIES PAIN, SOB AND N/V. GOOD CALL LIGHT WITHIN REACH. SLOW PROGRESS TOWARDS DC GOALS, WILL CONTINUE TO MONITOR.
[2020-04-08 08:00] VITALS: BP 159/77
--- NOTE | 2020-04-08 15:09 | NUR ---
ASSUMED CARES AT 0700. PT AWAKE, ALERT AND ORIENTED*4. DENIES PAIN AT THIS TIME. VITALS REMAIN STABLE. PT CONTINUES TO HAVE LEFT SIDED HEMIPARESIS. UP WITH 1 MOD-MAX ASSIST, PIVOT TRANSFERS. AMBULATING THE HALLWAYS THIS MORNING AND AFTERNOON, STATED THAT SHE FEELS BORED AND WOULD LIKE 3HRS OF THERAPY SHE IS DETERMINED TO GET STRONGER. Q1H VISUAL CHECKS. CALL LIGHT WITHIN REACH. FALL PRECAUTIONS IN PLACE
--- NOTE | 2020-04-09 00:22 | NUR ---
PT ALERT AND ORIENTED X 4. LEFT HEMIPARESIS NOTED. PT TAKES MEDS IN APPLESAUCE WITHOUT DIFFICULTY. REFUSED MIRALAX AT HS. PT DENIES PAIN OR DISCOMFORT. BED ALARM ON FOR SAFETY. PT APPEARS TO BE SLEEPING ON HOURLY ROUNDS.
[2020-04-09 08:20] VITALS: BP 137/84
--- NOTE | 2020-04-09 17:37 | NUR ---
ASSUMED CARE OF PT AT 0700. PT IS A&OX4 AND VITAL SIGNS ARE STABLE. PT DENIES PAIN AND PARTICIPATED IN SCHEDULED THERAPIES. LOWER EXTREMITY EDEMA +1 NOTED ON ASSESSMENT, PT ENCOURAGED TO ELEVATE LEGS WHEN AT REST. LOOSE STOOLS REPORTED BY BEDSPREAD FOLDER, STOOL SOFTENERS HELD THIS SHIFT. ACCU CHECKS D/C. HR REGUALR, LUNG SOUNDS CLEAR, AND BOWEL SOUNDS ACTIVE. PT CALLS APPROPRIATELY, FALL PRECAUTIONS IN PLACE AND NURSING WILL CONTINUE TO MONITOR.
[2020-04-09 19:00] VITALS: BP 150/78
--- NOTE | 2020-04-10 00:46 | NUR ---
PT ALERT AND ORIENTED X 4. LEFT SIDE FLACCID. PT TAKES MEDS IN APPLESAUCE WITHOUT DIFFICULTY. PT C/O BACK PAIN. TYLENOL GIVEN AT HS WITH RELIEF OF PAIN VERBALIZED. BED ALARM ON FOR SAFETY. PT APPEARS TO BE SLEEPING ON HOURLY ROUNDS.
[2020-04-10 08:20] VITALS: BP 144/84
--- NOTE | 2020-04-10 12:47 | NUR ---
team meeting, recommendation: e-stim started with therapy on left upper ext. vital stim with speech therapy as well. have daughter start looking into 24hr health care assistant for dc and or possible stay with daughter katelynn. re team with anticipated date 04/23/2020
--- NOTE | 2020-04-10 16:18 | NUR ---
ASSUMED CARE OF PT AT 0700. PT IS A&OX4 AND VITAL SIGNS ARE STABLE. PT DENIES PAIN THIS SHIFT. STOOL SOFTNER HELD FOR LOOSE STOOLS. PT TO BE ENCOURAGED TO USE KATE LAP BOARD WHEN OUT OF BED. NO IV ACCESS. FALL PRECAUTIONS IN PLACE AND NURSING WILL CONTINUE TO MONITOR.
[2020-04-10 19:25] VITALS: BP 157/90
--- NOTE | 2020-04-11 01:24 | NUR ---
ASSUMED CARE AT APPROX 1900 EVENING 04/10. PT LYING IN BED WITH HEAD OF BED ELEVATED AT CHANGE OF SHIFT. PT ALERT AND ORIENTED X4, PLEASANT AND COOPERATIVE. PT STATED SHE IS MAKING PROGRESS WITH THERAPY. PT CALLED OUT FOR HER HS MEDS AND TOOK WITH APPLESAUCE WHOLE TOLERATING WELL. PT WITH SOMEWHAT UNCOORDINATED MOVEMENTS TO ARMS AND LEGS AND STATED SHE MOVES AROUND IN BED ALOT. BED ALARM ON AND CALL LIGHT IN REACH. WILL CONTINUE TO MONITOR.
[2020-04-11 05:41] LABS: HEMOGLOBIN 13.7 gm/dL (12.0-15.0); MCHC 33.5 g/dL (28.0-37.0); MCV 95.6 fL (80.0-100.0); RBC 4.29 mil/uL (4.20-5.00); RDW 13.9 % (10.5-14.5)
[2020-04-11 06:00] LABS: CALCIUM 8.5 mg/dL (8.5-10.1); CREATININE 0.9 mg/dL (0.6-1.0); POTASSIUM 3.1 mmol/L (3.5-5.1)
[2020-04-11 08:00] VITALS: BP 155/91
--- NOTE | 2020-04-11 17:59 | NUR ---
PT CARE ASSUMED AT 0700. A&Ox4. PT DAUGHTER ON THE FLOOR ALL DAY TO LEARN PT'S NEW ROUTINE. NO COMPLAINTS OF PAIN. CONTINUE TO USE LAPBOARD WHEN PT IS IN THE WHEELCHAIR. BEDSIDE COMMODE. FALL PROTOCOL IN PLACE. POTASSIUM LOW, RECEIVED 2 DOSES OF POTASSIUM. REDRAW DONE AT 1700. POTASSIUM BACK IN NORMAL RANGE. Q2 TURNS WHEN IN BED. CALL LIGHT IN REACH. WILL CONTINUE TO MONITOR.
[2020-04-11 20:01] VITALS: BP 162/94
[2020-04-12 09:10] VITALS: BP 151/84
--- NOTE | 2020-04-12 15:23 | NUR ---
ASSUMED CARES AT 0700. PT AWAKE, ALERT AND ORIENTED*4. DENIES PAIN AT THIS TIME. VITALS REMAIN STABLE. CONTINUES TO HAVE LEFT SIDED HEMIPARESIS. UP WITH 1 MIN-MOD ASSIST, PIVOT TRANSFERS. TOLERATED WELL. PARTICIPATED WELL IN ALL THERAPIES. Q1H VISUAL CHECKS. CALL LIGHT WITHIN REACH. FALL PRECAUTIONS IN PLACE
[2020-04-12 20:31] VITALS: BP 155/94
--- NOTE | 2020-04-13 04:31 | NUR ---
RECIEVED CARE OF THIS PATIENT AT 1900. PATIENT ALERT AND ORIENTED X4. DENIES PAIN. L SIDE FLACCID. CALLED OUT AT 2014 FOR HER NIGHT TIME MEDS, MEDS WERE GIVEN. SLEPT MOST OF THE NIGHT.
[2020-04-13 07:30] VITALS: BP 152/86
--- NOTE | 2020-04-13 11:31 | NUR ---
Nutrition: pt admitted to rehab unit S/P acute CVA with left sided weakness. ST following for mild to moderate dysphagia and modified diet need. Meds/labs reviewed. Stable weights reported. PO intake of meals variable but overall 50-100%. Pt is able to order own meals. No nutrition interventions planned at this time-consider low risk.
--- NOTE | 2020-04-13 14:40 | NUR ---
ASSUMED CARES AT 0700. PT AWAKE, ALERT AND ORIENTED*4. VITALS REMAIN STABLE. PT C/O LOW BACK PAIN, TYLENOL ADMINISTERED NEEDED. LEFT SIDE REMAINS FLACCID. PULSES 2/2. PT UP WITH 1-2 ASSIST, PIVOT TRANSFERS TO W/C OR BED. PARTICIPATED IN ALL THERAPIES AND TOLERATED WELL. Q1H VISUAL CHECKS. CALL LIGHT WITHIN REACH. FALL PRECAUTIONS IN PLACE
[2020-04-13 19:26] VITALS: BP 149/85
--- NOTE | 2020-04-14 05:28 | NUR ---
ASSUMED CARE AT 1900. DURING ASSESSMENT, ABOUT 2029, PT ASKED ABOUT GETTING HER HS MEDS, SAYING SHE NEEDED THEM AT 2099. DENIED PAIN, NAUSEA, OR SOB. CALLED APPROPRIATELY TO USE BSC, HEAVY ONE ASSIST USING GAIT BELT. NO OTHER CONCERNS, WILL CONTINUE TO MONITOR.
[2020-04-14 07:30] VITALS: BP 151/90
--- NOTE | 2020-04-14 12:32 | HC ---
[facility] [place] [address] CONSULTATION Name: MARK PORTER Room #: 511-P ADM IN M.R.#: [id number] Admission: 04/03/20 Attend Phys: Royal Martinez MD Discharge: Date of : 49 Report #: [id number] THIS REPORT FOR: cc: JEROMY Ruiz family physician/PCP JEROMY - Sara family physician/PCP Cezar Ayala PhD ~ CC: Royal PINZON physician/PCP DATE OF SERVICE: 04/07/2020 BEHAVIORAL STATUS EXAM ATTENDING PHYSICIAN: Royal Martinez MD CLINICAL PRESENTATION: The patient is a 74-year-old female admitted to the [facility] with left-sided weakness and following a fall. She was trimming a tree when her left knee gave out. She described having had problems with left handed weakness and was dropping things. On admission, she was noted to have uncontrolled hypertension. MRI of the brain revealed an acute lacunar infarction in the right garcia radiata. Blood pressure was very high. She was in the Intensive Care Unit for malignant hypertension. Worsening of symptoms in the left upper extremity developed. 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 A complete description of her medical condition and history can be found in her medical record. Neuropsychological consultation was requested to provide assistance in the assessment of cognitive and emotional status and provide recommendations and services. Prior to this most recent medical event, she was living independently in her own home. She has a daughter that lives nearby and is planning to stay with her following her discharge. The patient had one child. 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 She is a college graduate. She does not report a history of treatment for depression or anxiety. TECHNIQUES UTILIZED: Clinical interview, review of medical records, staff consultation and behavioral observation, mini mental status exam 2 standard version, clock drawing and brief categories, brief verbal fluency assessment. EXAMINATION FINDINGS: The patient was alert and cooperative with the assessment. She accurately described events surrounding her admission. There [address] [address] CONSULTATION Name: MARK PORTER Room #: 511-P [facility] IN M.R.#: [id number] Admission: 04/03/20 Attend Phys: Royal Martinez MD Discharge: Date of : 49 Report #: [id number] is no evidence of aphasia. Her thoughts are logical and goal oriented. There is no evidence of thought disorder. She does not report auditory or visual hallucinations. She describes her symptoms to primarily include decreased appetite, although she appears fidgety and restless. She does not report difficulty with memory, word finding or anxiety/depression. Her performance on the MMSE 2 brief version was within normal limits with a raw score of 14/16. She was 3/3 for initial registration, 5/5 for orientation to time, 5/[address] and 1/3 for immediate recall of 3 items after a brief time delay and distraction. Performance on the MMSE 2 standard version is within normal limits with a raw score of 28/30. She was 5/5 for serial sevens, 2/2 for naming, 1/1 for repetition, 3/3 for comprehension, 1/1 for reading, writing and being able to copy a simple geometric design. Clock drawings within normal limits. Letter fluency was in the average range with a T score of 45, percentile rank of 31. Category fluency was within the average range with a T score of 55, percentile rank of 69. The patient is showing a good recovery in regard to neurocognitive functioning. A mild deficit in memory and immediate recall may be contributing to her presentation. She reported a history of tobacco abuse, which she plans to discontinue. She does not report feelings of restlessness or impulsive behavior as a result of the stroke. Increased assistance will be necessary to help compensate for motor deficits. Cognitive functioning appears well maintained. She has subtle to mild deficits noted. Her mood is very pleasant and personable which will contribute to good adjustment. 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 RECOMMENDATIONS: She will likely require assistance with independence to the extent of deficits and left upper and lower extremity weakness. Compensatory strategies for memory along with reassurance and support about her recovery will be a benefit. Her daughter is described as very supportive which will assist her overall recovery. [address] [address] CONSULTATION Name: MARK PORTER Room #: 511-P [facility] IN M.R.#: [id number] Admission: 04/03/20 Attend Phys: Royal Martinez MD Discharge: Date of : 49 Report #: [id number] Thank you very much for allowing me to provide the consultation on this patient. <ELECTRONICALLY SIGNED> By: Cezar Ayala, PhD 04/14/20 1232 1532 [id number] Cezar Ayala, PhD /nt
--- NOTE | 2020-04-14 15:50 | NUR ---
ASSUMED CARE OF PT AT 0700. PT IS A&OX4 AND VITAL SIGNS ARE STABLE. REPORTS THAT LOOSE STOOLS ARE RESOLVING. DENIES PAIN AT THIS TIME. ARM BOARD IN PLACE WHEN PT OOB IN W/C. CALLS APPROPRIATELY FOR ASSISTANCE. FALL PRECAUTIONS IN PLACE AND NURSING WILL CONTINUE TO MONITOR.
[2020-04-14 20:09] VITALS: BP 150/90
--- NOTE | 2020-04-15 04:28 | NUR ---
PATIENT ABLE TO CALL FOR MEDICATIONS APPROPRIATELY AROUND 2029, REQUESTED MEDICATIONS TO BE GIVEN AT 2099. PATIENT ABLE TO GET UP TO BSC WITH GB AND X2 PERSON ASSIST. NO ACUTE EVENTS OVERNIGHT.
[2020-04-15 08:00] VITALS: BP 138/79
--- NOTE | 2020-04-15 15:10 | NUR ---
ASSUMED CARE OF PT AT 0700. PT IS A&OX4 AND VITAL SIGNS ARE STABLE. PT CALLS APPROPRIATELY FOR ASSISTANCE AND MEDICATIONS. REPORTS SOFT FORMED STOOLS AT THIS TIME. KATE BOARD IN PLACE WHEN OOB. DAUGHTER ON UNIT THIS SHIFT, DAUGHTER VERBALIZES AND DEMONSTRATES APPROPRIATE UNDERSTANDING OF EDUCATION PROVIDED FOR PLANS TO DISCHARGE HOME. FALL PRECAUTIONS IN PLACE AND NURSING WILL CONTINUE TO MONITOR.
[2020-04-15 20:35] VITALS: BP 154/86
--- NOTE | 2020-04-16 02:45 | NUR ---
PATIENT ASSESSED AND IS ALERT X 4. SKIN WARM AND DRY. RESP EVEN AND UNLABORED. HAS A STROKE AND HER LEFT SIDE IS VERY FLACCID ON HER ARM. IS UNBALANCED AT TIMES WHEN SHE [place] [facility] NEEDS 2 PERSON ASSIST WITH WALKER AND GAIT BELT. NO SKIN ISSUES NOTED. CALLS OUT FOR MEDS APPROPRIATELY. TAKES MEDS WHOLE WITH APPLESAUSE. ABDOMEN SOFT WITH + BS. HAS LEFT SIDE HEMIPARESIS ONTED. O ROOM AIR. DENIES ANY PAIN. NO LOOSE STOOLS THIS SHIFT SO FAR. CONT PLAN OF CARE.SHE REMENBER TO ASK FOR HER MEDICATION. DENIES ANY NEEDS. SLEPT WELL LAST NIGHT.
[2020-04-16 06:46] LABS: ABSOLUTE NEUTROPHILS 3.7 thou/uL (1.4-8.2); BASOPHILS 1.2 % (0.0-2.0); EOSINOPHILS 4.4 % (0.0-3.0); HEMATOCRIT 41.6 % (37.0-47.0); HEMOGLOBIN 13.8 gm/dL (12.0-15.0); LYMPHOCYTES 30.7 % (24.0-44.0); MCH 31.9 pg (26.0-34.0); MCHC 33.1 g/dL (28.0-37.0); MCV 96.3 fL (80.0-100.0); MONOCYTES 7.6 % (1.0-8.0); PLATELET COUNT 241 thou/uL (150-400); POLYS 56.1 % (36.0-66.0); RBC 4.31 mil/uL (4.20-5.00); RDW 13.9 % (10.5-14.5); WBC 6.5 thou/uL (4.0-11.0)
[2020-04-16 07:42] LABS: CALCIUM 8.7 mg/dL (8.5-10.1); CREATININE 0.8 mg/dL (0.6-1.0); POTASSIUM 3.3 mmol/L (3.5-5.1)
[2020-04-16 09:00] VITALS: BP 148/87
[2020-04-16 19:22] VITALS: BP 170/82
--- NOTE | 2020-04-16 19:44 | NUR ---
ASSUMED CARE OF PT AT 0700. PT IS A&OX4 AND VITAL SIGNS ARE STABLE. PT DENIES PAIN THIS SHIFT, PARTICIPATED IN SCHEDULED THERAPIES. CALLED APPROPRIATELY FOR MEDICAITONS. DAUGHTER ON UNIT, ASSISTS PATIENT APPROPRIATELY. KATE BOARD ON W/C WHEN OOB. SOFT LOOSE STOOLS NOTED THIS SHIFT. FALL PRECAUTIONS IN PLACE AND NURSING WILL CONTINUE TO MONITOR.
--- NOTE | 2020-04-16 23:34 | NUR ---
ASSUMED CARE AT APPROX 1900 EVENING 04/11. PT LYING IN BED WITH HEAD OF BED ELEVATED RESTING COMFORTABLY. PT ALERT AND ORIENTED X4, PLEASANT AND COOPERATIVE. PT DENIED C/O PAIN. PT SLEPT WELL. BED ALARM ON THROUGHOUT NIGHT AND CALL LIGHT IN REACH.
--- NOTE | 2020-04-17 01:18 | NUR ---
assumed care at approx 1930 evening 04/16. pt lying in bed with head of bed elevated, alert and oriented x4, pleasant and cooperative. pt called out for her hs meds and took with yogurt tolerating well. pt appears to be sleeping soundly with hourly rounding checks. bed alarm on and call light in reach. will continue to monitor.
[2020-04-17 08:00] VITALS: BP 144/77
--- NOTE | 2020-04-17 10:22 | NUR ---
ASSUMED CARE OF PT AT 0700. PT IS A&OX4 AND VITAL SIGNS ARE STABLE. REPORTS SLEPT WELL LAST NIGHT. ABLE TO TURN HERSELF WHILE IN BED. C/O BACK PAIN AT NIGHT PRN TYLENOL HELPED. PT DENIES PAIN NOW. PARTICIPATED IN SCHEDULED THERAPIES. CALLED APPROPRIATELY FOR MEDICATIONS. UP WITH MAX ASSIST WITH PIVOT. KATE BOARD ON W/C WHEN OOB. SOFT LOOSE STOOLS THIS AM. OFFERED SUPPORTIVVE CARE. ENCOURAGED PT TO VOICE HER NEEDS. DISCUSSED ABOUT CARE PLAN FOR TODAY. ENCOURAGED DEEP BREATHING. PT SMOKED PRIOR ADMISSION AND PLAN TO QUIT. PT DENIES NEEDS FOR NICOTINE PATCH AND SAID I CAN STOP SMOKING. AWARES SMOKING CONTRIBUTES TO HER STROKE. FALL PRECAUTIONS IN PLACE AND NURSING WILL CONTINUE TO MONITOR.
--- NOTE | 2020-04-17 14:22 | NUR ---
team meeting, ne with hh ( pt, ot, st, nursing and bathaid). 24hr supervision and ability day program.
--- NOTE | 2020-04-17 16:45 | NUR ---
FAXED REFERRAL TO [facility] FOR A WHEELCHAIR FOR HOME SPOKE WITH [employer] IN INTAKE THEY RECEIVED REFERRAL AND WILL HAVE WHEELCHAIR DELIVERED PRIOR TO PT'S DISCHARGE 04/23.
[2020-04-17 19:28] VITALS: BP 146/84
--- NOTE | 2020-04-18 00:33 | NUR ---
assumed care at approx 1900 evening 04/17. pt lying in bed with head of bed elevated resting and watching tv. pt alert and oriented x4, pleasant and cooperative. pt stated she had a good day with therapy. pt called out for hs meds and took with yogurt tolerating well. pt up to bsc for bm tonight. pt appears to be sleeping soundly with hourly rounding checks. bed alarm on and call light in reach. will continue to monitor.
[2020-04-18 08:00] VITALS: BP 137/84
--- NOTE | 2020-04-18 08:34 | NUR ---
ASSUMED CARE OF PT AT 0700. PT IS A&OX4 AND VITAL SIGNS ARE STABLE. REPORTS PT DENIES PAIN NOW. PARTICIPATED IN SCHEDULED THERAPIES. CALLED APPROPRIATELY FOR MEDICATIONS. UP WITH MAX ASSIST WITH PIVOT. KATE BOARD ON W/C WHEN OOB. SOFT LOOSE STOOLS THIS AM. OFFERED SUPPORTIVVE CARE. ENCOURAGED PT TO VOICE HER NEEDS. DISCUSSED ABOUT CARE PLAN FOR TODAY. ENCOURAGED DEEP BREATHING. REASSESSMENT PER CHART. MORNING MEDS GIVEN ONE AT THE TIME WITH APPLE SAUCE. FALL PRECAUTIONS IN PLACE AND NURSING WILL CONTINUE TO MONITOR. PT IS UP IN WC AND WATCHING TV.
--- NOTE | 2020-04-18 11:01 | NUR ---
FAXED REFERRAL TO [facility] SPOKE WITH MANINDER IN INTAKE SHE RECEIVED REFERRAL AND WILL ACCEPT BUT NEEDS PCP. SHI (MAYELA) REACHED OUT TO DR. SPARROW'S OFFICE AND HE WILL ACCEPT PT APPT SET FOR 04/25 AT 1045. NOTIFIED MANINDER AT [facility] THAT PT HAS PCP. ANTICIPATE DC 04/23.
--- NOTE | 2020-04-18 14:45 | NUR ---
Patient participated in community reintegration on 04/18/20 with OT. Refer to documentation by OT.
--- NOTE | 2020-04-18 15:27 | NUR ---
Patient participated in community reintegration on 04/18/20 with OCCUPATIONAL THERAPY. Refer to documentation by LUCHO HARDIN.
[2020-04-18 20:25] VITALS: BP 167/88
--- NOTE | 2020-04-19 04:37 | NUR ---
ASSUMED CARE OF PT FROM DAY SHIFT , PT UP TO BSC HAD LOOSE BROWN STOOL , NO CONCERNS VOICED , SLEPT THROUGHOUT HOURLY ROUNDS NO CHANGES NOTED, WILL CONITINUE WITH CURRENT PLAN OF CARE.
[2020-04-19 05:44] LABS: ABSOLUTE NEUTROPHILS 3.6 thou/uL (1.4-8.2); BASOPHILS 1.2 % (0.0-2.0); EOSINOPHILS 4.6 % (0.0-3.0); HEMATOCRIT 40.4 % (37.0-47.0); HEMOGLOBIN 13.7 gm/dL (12.0-15.0); LYMPHOCYTES 33.4 % (24.0-44.0); MCH 32.6 pg (26.0-34.0); MCHC 33.8 g/dL (28.0-37.0); MCV 96.3 fL (80.0-100.0); PLATELET COUNT 241 thou/uL (150-400); POLYS 53.8 % (36.0-66.0); RBC 4.19 mil/uL (4.20-5.00); WBC 6.7 thou/uL (4.0-11.0)
[2020-04-19 05:57] LABS: CALCIUM 8.6 mg/dL (8.5-10.1); CREATININE 0.8 mg/dL (0.6-1.0); POTASSIUM 3.2 mmol/L (3.5-5.1)
[2020-04-19 08:00] VITALS: BP 146/83
--- NOTE | 2020-04-19 11:25 | NUR ---
ASSUMED CARE AT 0700. PATIENT IS ALERT AND ORIENTED X4. PATIENT'S LEFT SIDE IS FLACCID. PATIENT LUNGS ARE CLEAR. ABD IS SOFT WITH BSX4. UP IN W/C AND OUT TO THE DINGING ROOM FOR MEALS. UP WITH ASSIST OF 1 STAFF AND GAIT BELT TO THE BATHROOM TO VOID ELYSIA COLORED URINE. FALL AND SAFETY PROTOOCLS IN PLACE. DENIES PAIN AT THIS TIME. CONTINUES TO PROGRESS TOWARDS D/C GOALS. WILL CONTINUE TO MONITER.
--- NOTE | 2020-04-19 14:58 | NUR ---
ability pinky rx giving to manpower development specialist so that MD can sign and cm will fax it back. this for after hh needs are completed.
[2020-04-19 19:53] VITALS: BP 167/86
--- NOTE | 2020-04-20 03:46 | NUR ---
CALLING APPROPRIATELY FOR MEDS AND FOR MOD ASSIST UP TO BSC. CONTINUES TO HAVE SMALL UNFORMED BOWEL MOVEMENTS. LEFT SIDE WEAK, ABLE TO MOVE SELF UP IN BED WHILE LYING DOWN
--- NOTE | 2020-04-20 11:21 | NUR ---
Nutrition: pt seen per followup. Continues on modified diet and NMES with ST. Not ready for upgraded diet yet. Intake is good, average 70% of meals. Stable weights. Pt c/o diarrhea and felt it was due to applesauce with meds. Suggested yogurt which she agreed to. Continue as low nutrition risk.
--- NOTE | 2020-04-20 12:14 | NUR ---
ASSUMED CARE AT 0700. PATIENT IS ALERT AND ORIENTEDX4. PATIENT HAS LEFT SIDED FLACCIDITY. PATIENT LUNGS ARE CLEAR , ABD IS SOFT WITH BSX4. UP IN THE W/C FOR MEALS IN THE DINING ROOM. UP TO THE BATHROOM TO VOID ELYSIA COLORED URINE. FALL AND SAFETY PROTOCOLS IN PLACE. DENIES PAIN. CONTINUES TO PROGRESS TOWARDS D/C GOALS. WILL CONTINUE TO MONITER.
--- NOTE | 2020-04-20 13:47 | PLAN ---
[facility] [place] [address] REHAB UNIT PLAN OF CARE Name: MARK PORTER Room #: 511-P ADM IN M.R.#: [id number] Admission: 04/03/20 Attend Phys: Royal Martinez MD Discharge: Date of : 47 Report #: [id number] THIS REPORT FOR: //name// CC: Royal Martinez [facility] physician/PCP DATE OF SERVICE: 04/06/2020 PROGRESS CARE AND OVERALL PLAN OF CARE SUBJECTIVE: The patient is seen back today in followup. She was in no distress. Pleasant, temperature 36.2, pulse 84, respirations 16, and blood pressure 142/81. She continues to have dense left upper extremity flaccid plegia. Left lower extremity strength is probably a grade 3 maybe 3+. We are utilizing a hemilap board. She does have some mild subluxation of the left shoulder. No pain with range of motion or dysvascular changes. She has been working in therapies with transfers at a max assist level, max assist to try to step 1 foot. In occupational therapy, lower body dressing is mod assist. In speech therapy, the patient is on a mechanical soft with all liquids. She has moderate memory deficits. ASSESSMENT: 1. Lacunar cerebrovascular accident with left hemiparesis. 2. Intracranial stenosis. 3. Left ICA 90% stenosis. 4. Malignant hypertension. 5. Left ventricular hypertrophy. 6. Acute renal insufficiency, improved. 7. Tobacco abuse. 8. Hypokalemia. PLAN: The overall plan of care is based on the preadmission screen, post-admission physician evaluation and information garnered from therapy assessments. 1. Estimated length of stay is probably at least 2 weeks and likely significantly longer. 2. Medical prognosis is reasonably good. 3. Anticipated interventions include the interdisciplinary acute inpatient rehabilitation program. 4. Anticipated functional outcomes would be for the patient to become modified independent with transfers or at least to improve as far as basic transfers, mobility and ADLs. Try to be as independent as possible at a wheelchair level with hopes of returning back to the home setting. 5. Discharge destination would be back home. Apparently a daughter and granddaughter are going to be moving in to assist her. [facility] [address] [place] [address] REHAB UNIT PLAN OF CARE Name: MARK PORTER Room #: 511-P [facility].#: [id number] Admission: 04/03/20 Attend Phys: Royal Martinez MD Discharge: Date of : 47 Report #: [id number] 6. Expected therapy by discipline includes PT, OT and speech 1 hour per day each five days a week throughout the duration of the acute inpatient rehabilitation stay. <ELECTRONICALLY SIGNED> By: Royal Martinez MD 04/20/20 1347 1220 1901 Royal Martinez MD /nt
--- NOTE | 2020-04-20 13:47 | H ---
[facility] [place] [address] HISTORY AND PHYSICAL Name: MARK PORTER Room #: 511-P ADM IN M.R.#: [id number] Admission: 04/03/20 Attend Phys: Royal Martinez MD Discharge: Date of : 49 Report #: [id number] THIS REPORT FOR: cc: JEROMY Ruiz family physician/PCP JEROMY - No family physician/PCP Royal Martinez MD ~ CC: Royal PINZON physician/PCP DATE OF SERVICE: 04/03/2020 HISTORY AND PHYSICAL AND POSTADMISSION PHYSICIAN EVALUATION HISTORY OF PRESENT ILLNESS: The patient is a 74-year-old white female who was admitted with left-sided weakness after a mechanical fall. She apparently was trimming a tree when her left knee gave out. She had problems with left hand weakness and was dropping objects. Upon admission, she was noted to have uncontrolled hypertension. MRI of the brain was obtained, which showed acute lacunar infarcts in the right garcia radiata. She had blood pressures as high as 196/102 and 212/102. She was in the intensive care unit for malignant hypertension. She was followed by Neurology. She had worsening weakness of that left upper extremity with the development of essentially a flaccid plegia. She was noted to have carotid arterial stenosis 50% on the right. Left was 90%. There was noted to be a critical 95% stenosis of the mid right middle cerebral artery. She also has 80-90% stenosis of the origin of the left common carotid. Cardiology is involved. She is on aspirin, Plavix and statin. She has now been admitted for acute in-hospital inpatient rehabilitation. She has a left ICA stenosis, 90% at the origin as well as intracranial stenosis. PAST MEDICAL HISTORY: Includes hypertension, noted to be malignant hypertension. HABITS: History of tobacco abuse prior to admission, she was an everyday smoker, one-half pack per day. Use of alcohol on special occasions. MEDICATIONS: Please see the full medication listing. SOCIAL HISTORY: Lives in a house, 3 story, but can stay on the main floor without steps. There is a daughter and granddaughter that are apparently going to be moving in to assist her per the patient's history. REVIEW OF SYSTEMS: No current complaints of chest pain, shortness of breath or abdominal discomfort. PHYSICAL EXAMINATION: GENERAL: Pleasant 74-year-old white female in no obvious distress. [address] [address] HISTORY AND PHYSICAL Name: MARK PORTER Room #: 511-P [facility] IN M.R.#: [id number] Admission: 04/03/20 Attend Phys: Royal Martinez MD Discharge: Date of : 47 Report #: [id number] VITAL SIGNS: Last recorded temperature 36.6, pulse 86, respirations 20, blood pressure 151/92. The patient is alert, pleasant. HEENT: Appeared to be benign. Appears to have a depressed left nasolabial fold. She has some mild slurring of speech. No obvious word finding difficulties. CHEST: Sounded clear to auscultation. CARDIOVASCULAR: Regular rate and rhythm. ABDOMEN: Bowel sounds positive, nontender. GENITOURINARY AND RECTAL: Deferred. EOMs appeared full. No obvious visual field neglect to confrontation. EXTREMITIES: She has dense left upper extremity flaccid plegia. She may have some mild subluxation at left shoulder. Negative Galvez's. No volitional movement. Left lower extremity strength is better, probably a grade 3+/5 proximal and distal. Right lower extremity strength appeared functional. Right upper extremity strength appeared functional with reasonable range of motion. Sensation reasonably intact to simultaneous stimulation bilateral upper and lower extremities. Functionally, she has been working in therapies and has been on mod assist sit to stand, max assist with a step pivot transfer. She is on a mechanical soft all liquid diet. ASSESSMENT: A 74-year-old white female with the following problem list: 1. Lacunar cerebrovascular accident with dense left upper extremity plegia and left lower extremity paresis. 2. Intracranial stenosis. 3. Left internal carotid artery stenosis, 90% at the origin. 4. Malignant hypertension. 5. Left ventricular hypertrophy. 6. Acute renal insufficiency, which has improved. 7. Tobacco abuse. PLAN: The patient is admitted for acute in-hospital inpatient rehabilitation. From a postadmission physician evaluation perspective, there are no relevant changes since the preadmission screening. Please see the above review of prior and current medical and functional conditions and comorbidities. Please see the patient's previous and current functional status. As far as risk of complications, the patient has multiple medical comorbidities as noted above. Initial plan of care involves the interdisciplinary acute inpatient rehabilitation program. Measurable functional goals would be for the patient to become modified independent with transfers, mobility, ADLs, cognition, communication and swallowing. She is on mechanical soft. Prognosis is reasonably good with estimated length of stay probably at least 10 days to 2 weeks and likely significantly longer pending her progress. Potential barriers [facility] [address] [place] [address] HISTORY AND PHYSICAL Name: MARK PORTRE Room #: 511-P ADM IN M.R.#: [id number] Admission: 04/03/20 Attend Phys: Royal Martinez MD Discharge: Date of : 49 Report #: [id number] would include her multiple medical comorbidities and decreased functional status. <ELECTRONICALLY SIGNED> By: Royal Martinez MD 04/20/20 1347 0814 1010 Royal Martinez MD /nt
--- NOTE | 2020-04-20 14:19 | NUR ---
cm visited with pt daughter rosa to see if she was ok with using [facility] and [facility] at home, then transition to [facility] day program. " yes this is ok, lulux is going to call me thursday evening to set up appointment for thu, thanks for calling"/daughter.
[2020-04-20 19:35] VITALS: BP 169/87
--- NOTE | 2020-04-21 03:36 | NUR ---
CALLS APPROPRIATELY FOR MEDS AND ASSIST TO BSC. SHORT STEPS TOWARDS BSC FOR VOID AND BM, LEFT SIDE IS VERY WEAK. WIPES SELF BUT NEEDS MIN ASSIST TO PULL SHORTS UP AND DOWN WHILE SUPPORTED BY GAIT BELT ASSIST FROM STAFF. PLEASANT AND THANKFUL. CONTINUES TO HAVE SMALL LOOSE STOOLS, WE ARE TRYING MEDS IN [place] RATHER THAN APPLE SAUCE.
[2020-04-21 08:20] VITALS: BP 138/93
[2020-04-21 11:41] LABS: ABSOLUTE NEUTROPHILS 4.5 thou/uL (1.4-8.2); EOSINOPHILS 3.2 % (0.0-3.0); HEMATOCRIT 42.7 % (37.0-47.0); HEMOGLOBIN 14.5 gm/dL (12.0-15.0); LYMPHOCYTES 25.7 % (24.0-44.0); MCH 32.4 pg (26.0-34.0); MCHC 33.9 g/dL (28.0-37.0); MCV 95.8 fL (80.0-100.0); MONOCYTES 6.1 % (1.0-8.0); PLATELET COUNT 260 thou/uL (150-400); RBC 4.46 mil/uL (4.20-5.00); RDW 13.9 % (10.5-14.5)
[2020-04-21 11:54] LABS: ALBUMIN 3.5 g/dL (3.4-5.0); PHOSPHORUS 4.3 mg/dL (2.5-4.9); POTASSIUM 3.6 mmol/L (3.5-5.1); TOTAL BILIRUBIN 0.4 mg/dL (0.2-1.0); TOTAL PROTEIN 6.9 g/dL (6.4-8.2)
--- NOTE | 2020-04-21 13:03 | NUR ---
ASSUMED CARE AT 0700. PATIENT IS ALERT AND ORIENTEDX4. PATIENT HAS LEFT SIDED FLACCIDITY. REPORTS SLEPT WELL LAST NIGHT. DENIES PAIN.PATIENT LUNGS ARE CLEAR ABD IS SOFT WITH BSX4. UP IN THE W/C FOR MEALS IN THE DINING ROOM. HAS GOOD APPETITE, IN GOOD SPIRIT.PT HAD ONE LOOSE STOOL THIS AM. DR. PAREDES CAME TO SEE PT AND ORDER FOR OCCULT BLOOD AND FECAL LEUKOCYTE, CBC, CMP. ALL LABS RESULT LOOK NORMAL. NOTIFIED DR. PAREDES. STILL WAITING FOR STOOL TO SEND TO LAB. WILL CONTINUE TO MONITOR. UP TO THE BATHROOM TO VOID ELYSIA COLORED URINE. OFFERED SUPPORTIVE CARE.REASSESSMENT PER CHART. PT UP AND PARTICIPATES WELL WITH THERAPY. CALLS FOR MEDS APPROPRIATELY PER ST'S ASSIGMENT. FALL AND SAFETY PROTOCOLS IN PLACE. DENIES PAIN. CONTINUES TO PROGRESS TOWARDS D/C GOALS. WILL CONTINUE TO MONITER.
[2020-04-21 19:25] VITALS: BP 157/85
--- NOTE | 2020-04-22 00:30 | NUR ---
PT ALERT AND ORIENTED X 4. LEFT SIDED WEAKNESS. C/O PAIN IN HER BACK. TYLENOL GIVEN AT HS. PT CALLED FOR HS MEDICATIONS AT 1930. BED ALARM ON FOR SAFETY. PT APPEARS TO BE SLEEPING ON HOURLY ROUNDS.
--- NOTE | 2020-04-22 05:57 | NUR ---
STOOL SPECIMEN SENT TO LAB.
[2020-04-22 09:30] VITALS: BP 150/81
--- NOTE | 2020-04-22 11:53 | NUR ---
ASSUMED CARE AROUND 0700, A&O X 4, NO ACUTE DISTRESS NOTED. VSS, 02 ON RA. PT DENIES ANY PAIN AND DISCOMFORT. PT FORGET TO CALL FOR MEDS THIS MORNING. GIVEN PER ORDERS, TOLERATED WELL. PARTICIPATED ON THERAPIES. CONTINENT OF B&B, BM THIS MORNING. DTR VISITED, PT ROLLING AROUND IN , WILL CONTINUE TO MONITOR PER POC.
[2020-04-22 19:22] VITALS: BP 165/89
--- NOTE | 2020-04-23 03:23 | NUR ---
PATIENT ALERT AND ORIENTED X4. UP TO BS WITH ONE ASSIST AND GAIT BELT (MODERATE ASSIST). AT TIME OF NOTE PATIENT HAS HAD TWO LOOSE STOOLS DARK BROWN AND MODERATE TO LARGE. PATIENT CALLS APPROPRIATELY FOR MEDICATION INSTRUCTED. GIVEN TYLENOL FOR PAIN X1. PATIENT LOOKING FORWARD TO GOING HOME TODAY. PLEASANT AND COOPERATIVE. WILL MONITOR.
[2020-04-23 05:58] LABS: CALCIUM 8.7 mg/dL (8.5-10.1); CREATININE 0.9 mg/dL (0.6-1.0); MAGNESIUM 1.9 mg/dL (1.8-2.4); POTASSIUM 3.3 mmol/L (3.5-5.1)
[2020-04-23 06:01] LABS: ABSOLUTE NEUTROPHILS 3.5 thou/uL (1.4-8.2); BASOPHILS 1.2 % (0.0-2.0); EOSINOPHILS 4.1 % (0.0-3.0); HEMATOCRIT 39.9 % (37.0-47.0); HEMOGLOBIN 13.7 gm/dL (12.0-15.0); LYMPHOCYTES 32.4 % (24.0-44.0); MCH 32.7 pg (26.0-34.0); MCHC 34.2 g/dL (28.0-37.0); MCV 95.5 fL (80.0-100.0); MONOCYTES 7.2 % (1.0-8.0); PLATELET COUNT 225 thou/uL (150-400); POLYS 55.1 % (36.0-66.0); RBC 4.18 mil/uL (4.20-5.00); WBC 6.4 thou/uL (4.0-11.0)
[2020-04-23] MEDS ORDERED: LIPITOR 20 MG T20 M1 PO (08:17)
[2020-04-23] MEDS ORDERED: CLOPIDOGREL75 MG PO (08:17)
[2020-04-23] MEDS ORDERED: ACIDOPHILUS1 EAC4 PO (08:17)
[2020-04-23] MEDS ORDERED: ASPIR 8181 MG PO (08:17)
[2020-04-23] MEDS ORDERED: NORVASC5 MG PO (08:17)
[2020-04-23 08:20] VITALS: BP 143/81
--- NOTE | 2020-04-23 09:40 | NUR ---
wheel chair was not delivered yet today. pt daughter is already here and pt ready to go. caridad requested more documentation on need for wheel chair for insurance to approve. cm passed on information to pt and her daughter rosa here with pt for dc today. [facility]. ability pinky day program. vouch form on chart. will cont following as needed for dc needs.
[2020-04-23 09:50] VITALS: BP 143/81
[2020-04-23] MEDS ORDERED: KLOR-CON 10 ER10 MEQ PO (09:50)
[2020-04-23 09:59] VITALS: BP 143/81
--- NOTE | 2020-04-23 10:47 | NUR ---
ASSUMED CARE AROUND 0700, A&O X 4, REPORTS SLEPT WELL LAST NIGHT.VSS, 02 ON RA. PT DENIES ANY PAIN AND DISCOMFORT. PT REMEMBER TO CALL FOR MEDS THIS MORNING. GIVEN PER ORDERS, TOLERATED WELL. PARTICIPATED ON THERAPIES. OT GAVE PT SHOWER THIS AM. CONTINENT OF B&B, BM THIS MORNING. DTR IS WITH PT. PT ROLLING AROUND IN WC. OFFERED SUPPORTIVE CARE. LABS REVIEWED. K 3.3,NOTIFIED KIERA, POTASSIUM SUPPLEMENT AND MORNING MEDS GIVEN ORDERED. RESSESSMENT PER CHART. PT UP WITH MIN ASSIST PIVOT FROM CHAIR TO BATHROOM. REVIEWED DISCHARGE MEDS, INSTRUCTIONS AND APPOINTMENTS WITH PT AND HER DAUGHTER. SPEECH THERAPIST TALKED WITH PT AND HER DAUGHTER ABOUT DISCHARGE INSTRUCTION ON HER SWALLOWING. DISCHARGE MEDS SENT TO PT'S PHARMACY. PT IS WAITING FOR HER WALKER BEFORE DISCHARGE. WILL CONTINUE TO MONITOR
--- NOTE | 2020-04-23 15:55 | NUR ---
FAXED DC ORDERS/SUMMARY TO [facility] RECEIVED CONFIRMATION AND SPOKE WITH INTAKE AND THEY WILL NOTIFY PT TIME OF VISITS.
== END 2020-04-23 14:24 | disposition home health service (06) | DRG 56 ==
PROVIDERS: Internal Medicine; Nurse Practitioner; Nurse Practitioner Family; ADMIT Physical Medicine & Rehabilitation; ATTEND Physical Medicine & Rehabilitation
DX: I69.354 Hemiplegia and hemiparesis following cerebral infarction affecting left non-dominant side (principal); I63.81 Other cerebral infarction due to occlusion or stenosis of small artery; N17.9 Acute kidney failure, unspecified; I10 Essential (primary) hypertension; I51.7 Cardiomegaly; N28.9 Disorder of kidney and ureter, unspecified; R13.10 Dysphagia, unspecified; E87.6 Hypokalemia; I65.22 Occlusion and stenosis of left carotid artery; G31.84 Mild cognitive impairment of uncertain or unknown etiology
CPT/HCPCS: 10112

== ENCOUNTER 2020-05-01 12:42 | Emergency (ER) | payer OTHER ==
[~2020-05-01] VITALS: Ht 160 cm; Wt 74.8 kg
[~2020-05-01 12:42] MED LIST changes: +ACIDOPHILUS1 EAC4 PO; +ASPIR 8181 MG PO; +KLOR-CON 10 ER10 MEQ PO
[2020-05-01] MEDS ORDERED: AMLODIPINE-BEN1 EAC3 PO (13:32)
[2020-05-01 14:17] VITALS: BP 179/89
== END 2020-05-01 15:29 | disposition home or self-care (01) ==
LOC: ER 12:42
DX: I10 Essential (primary) hypertension (principal); F17.210 Nicotine dependence, cigarettes, uncomplicated; Z79.2 Long term (current) use of antibiotics; Z79.899 Other long term (current) drug therapy

== ENCOUNTER 2020-06-02 14:39 | Inpatient (IN) | payer OTHER ==
[~2020-06-02] VITALS: Ht 157.5 cm; Wt 59.4 kg
[~2020-06-02 14:39] MED LIST changes: +AMLODIPINE-BEN1 EAC3 PO
[2020-06-02 14:40] VITALS: BP 93/57
[2020-06-02 15:20] LABS: ABSOLUTE NEUTROPHILS 8.2 thou/uL (1.4-8.2); BASOPHILS 0.6 % (0.0-2.0); EOSINOPHILS 1.5 % (0.0-3.0); HEMATOCRIT 39.2 % (37.0-47.0); HEMOGLOBIN 13.9 gm/dL (12.0-15.0); LYMPHOCYTES 15.6 % (24.0-44.0); MCH 33.5 pg (26.0-34.0); MCHC 35.5 g/dL (28.0-37.0); MCV 94.5 fL (80.0-100.0); MONOCYTES 4.6 % (1.0-8.0); POLYS 77.7 % (36.0-66.0); RBC 4.15 mil/uL (4.20-5.00); RDW 14.3 % (10.5-14.5); WBC 10.6 thou/uL (4.0-11.0)
[2020-06-02 15:30] LABS: ANION GAP 15 mmol/L (7-16); BUN 90 mg/dL (7-18); CALCIUM 8.6 mg/dL (8.5-10.1); CHLORIDE 102 mmol/L (98-107); CO2 18 mmol/L (21-32); CREATININE 2.1 mg/dL (0.6-1.0); GLUCOSE 121 mg/dL (74-106); SODIUM 135 mmol/L (136-145)
[2020-06-02 15:39] LABS: PLATELET COUNT 238 thou/uL (150-400)
[2020-06-02 15:40] LABS: ALBUMIN 3.5 g/dL (3.4-5.0); MAGNESIUM 2.3 mg/dL (1.8-2.4); SGOT 13 U/L (15-37); SGPT 17 U/L (30-65); TOTAL BILIRUBIN 0.3 mg/dL (0.2-1.0); TOTAL PROTEIN 7.4 g/dL (6.4-8.2); TROPONIN-I <0.06 ng/mL (<0.06)
[2020-06-02 15:41] LABS: POTASSIUM 2.9 mmol/L (3.5-5.1)
[2020-06-02 16:10] LABS: URINE BILIRUBIN NEGATIVE (Negative); URINE BLOOD NEGATIVE (Negative); URINE CLARITY CLEAR; URINE COLOR YELLOW; URINE GLUCOSE-RANDOM* NEGATIVE (Negative); URINE KETONES NEGATIVE (Negative); URINE LEUKOCYTES-REFLEX NEGATIVE (Negative); URINE NITRITE-REFLEX NEGATIVE (Negative); URINE PROTEIN (DIPSTICK) NEGATIVE (Negative); URINE SPECIFIC GRAVITY 1.015 (1.005-1.035); URINE UROBILINOGEN 0.2 E.U./dl (0.2-1.0)
[2020-06-02] MEDS ORDERED: ZESTRIL40 MG PO (16:35)
[2020-06-02] MEDS ORDERED: HYDROCHLOROTH12.5 M2 PO (16:35)
[2020-06-02 16:43] LABS: CHOLESTEROL 98 mg/dL (<200); HDL CHOLESTEROL 34 mg/dL (>40); LDL CHOLESTEROL 11 mg/dL (<100); TC:HDL 2.9 Ratio (Not establshd); TRIGLYCERIDE 267 mg/dL (<150); VLDL 53 mg/dL (<40)
[2020-06-02 16:56] LABS: FOLIC ACID 10.7 ng/mL (8.6-58.9); TSH 1.771 uIU/mL (0.358-3.740)
[2020-06-02 18:31] VITALS: BP 126/71
--- NOTE | 2020-06-02 19:26 | NUR ---
INPATIENT NURSING REFUSING TO TAKE REPORT
[2020-06-02 19:56] VITALS: BP 108/70
[2020-06-02 20:33] VITALS: BP 140/82
[2020-06-03 00:47] VITALS: BP 121/73
[2020-06-03 04:04] VITALS: BP 115/62
--- NOTE | 2020-06-03 05:22 | NUR ---
ASSUMED CARE OF PT FROM ED AT 2020HRS. PT IS AOX4 AND LETS NEEDS BE KNOWN. PT WAS ORIENTED TO THE UNIT AND HER ROOM. PT WAS ABLE TO ANSWER ALL ADMISSION RELATED QUESTIONS. PT WAS ABLE TO SIGN OWN CONSENTS. PT DENIED PAIN, NAUSEA OR SOA. BP STABLE. PT RUNNING SR ON TELE. PT HAS HX OF CVA WITH LEFT SIDED WEAKNESS. PT WAS ABLE TO TAKE ALL MEDS WHOLE WITH WATER. REDNESS NOTED IN BOTTOM. NO OPEN WOUNDS NOTED. VSS AND NO S/S OF ACUTE DISTRESS. WILL CONTINUE TO MONITOR.
[2020-06-03 08:05] VITALS: BP 115/57
[2020-06-03 12:23] LABS: CALCIUM 8.3 mg/dL (8.5-10.1); CREATININE 1.2 mg/dL (0.6-1.0); POTASSIUM 3.3 mmol/L (3.5-5.1)
[2020-06-03 12:25] LABS: ALBUMIN 2.9 g/dL (3.4-5.0); PHOSPHORUS 2.1 mg/dL (2.5-4.9)
[2020-06-03 16:12] VITALS: BP 170/93
--- NOTE | 2020-06-03 18:56 | NUR ---
ASSUMED CARE AT 0700. PT IS ALERT AND ORIENTED. H/O CVA WITH LEFT SIDED WEAKNESS/RESDIUAL. SLOW TO ANSWER BUT APPROP. VSSA/RA NSR ON TELE. TOLERATING DIET. GI/ NML. PIV INFUSING. FALL PRECAUTIONS IN PLACE. EDUCATED PT TO CALL IF NEEDS ARISE. CALL LIGHT IN REACH. WILL CONTINUE TO MONITOR
[2020-06-03 19:15] VITALS: BP 142/66
[2020-06-03 19:25] VITALS: BP 172/75
[2020-06-04 03:58] VITALS: BP 163/71
--- NOTE | 2020-06-04 05:39 | NUR ---
ASSUMED PT CARE AT 1929. PT IS A&O X 4. IV IN RIGHT AC. PT DENIES PAIN. PT CALLS OUT APPROPRIATELY. PT TAKES MEDS WHOLE. PT CALLS OUT APPROPRIATELY. PT IS RESTING IN ROOM. HOURLY ROUNDING. WILL CONTINUE TO MONITOR.
[2020-06-04 06:06] LABS: ALBUMIN 2.8 g/dL (3.4-5.0); CALCIUM 8.3 mg/dL (8.5-10.1); CREATININE 0.8 mg/dL (0.6-1.0); PHOSPHORUS 2.2 mg/dL (2.5-4.9)
--- NOTE | 2020-06-04 08:28 | EKG ---
[facility] [employer] [place] [address] ELECTROCARDIOGRAM REPORT Name: MARK PORTER Room #: 460-P ADM IN M.R.#: [id number] Admission: 06/02/20 Attend Phys: Diego Harris Discharge: Date of : 49 Report #: [id number] THIS REPORT FOR: cc: Dorian Meyer James A. DO Lundgren, Craig H. MD [facility] ~ THIS REPORT FOR: //name// [facility] ED Test Date: 2020-06-02 Test Time: 15:30:03 Pat Name: MARK PORTER Department: Room: [facility] Gender: F Mobile Application Architect: lian : 1945 Requested By: James Perkins Order Number: [id number] MD: Mike Jones Measurements Intervals [place] Rate: 101 P: 39 CT: 162 QRS: -32 QRSD: 98 T: 89 QT: 333 QTc: 432 Interpretive Statements Sinus tachycardia Abnormal R-wave progression, late transition Inferior infarct, old Compared to ECG 03/25/2020 10:54:34 Myocardial infarct finding now present Ventricular premature complex(es) no longer present Electronically Signed On 06-04-2020 8:28:25 CDT by Mike Jones [email or web address] <ELECTRONICALLY SIGNED> By: Mike Jones MD, [facility] 06/04/2028 29 29 Mike Jones MD, [facility] /EPI
[2020-06-04] MEDS ORDERED: NORVASC 2.5 MG2.5 M1 PO (09:07)
[2020-06-04 09:56] VITALS: BP 163/71
--- NOTE | 2020-06-04 09:58 | NUR ---
PT ADMITTED REALTED TO UNSTABLE BP. CM REVIEWED CHART AND SPOKE WITH CARE TEAM. PT HAD DISCHARGED FROM [facility] 04/23/20. CM CALLED PT'S ROOM THIS AM AND SPOKE WIHT PT'S DRT. SHE INDICATED THAT PT HAD BEEN LIVING IN A HOUSE AND ALL NEEDS ARE ON 1 LEVEL. PT'S DTR INDICATED THAT SHE IS STAYING WITH PT AND ASSISTING HER NEEDED. DTR INDICATED THAT PT HAS A LOANER WC FROM 5 THEY ARE STILL WAITING ON WC FROM [facility] THEY WERE BACK ORDERED. DTR INDICATED THAT SHE IS ON SERVICE WITH [facility] AND THAT THEY WOULD LIKE TO RESUME SERVICES WITH THEM UPON DC. CM INDICATED THAT CARE TEAM INDICATED THAT PT IS MEDICALLY STABLE TO DC HOME THIS DAY. PT AND DTR ARE AWARE AND AGREEABLE. CM TO FAX CLINICAL UPDATE AND ORDERS TO [facility]. PT'S DTR TO PROVIDE TERANSPORT HOME AFTER BREAKFAST. NO OTHER CM INTERVENTION INDICATED. CASE CLOSED.
[2020-06-04 10:54] VITALS: BP 166/95
--- NOTE | 2020-06-04 10:58 | NUR ---
PT DISCHARGING TODAY TO [place] [facility] FAXED UPDATE AND DC ORDERS/SUMMARY SPOKE WITH MANINDER IN INTAKE SHE RECEIVED ORDERS AND WILL SET UP VISITS WITH PT.
--- NOTE | 2020-06-04 11:01 | NUR ---
ASSUMED PT CARE AT 0700.TX ORIENTED X 4. ROOM AIR. IV RT AC. 1 PERSON ASST. USES BEDSIDE COMMODE. DAUGHTER IN ROOM. FALL PRECT IN PLACE. CALL LGHT IN REACH. WILL CALL APPROP. DISCHARGING HOME WITH HH.
== END 2020-06-04 11:30 | disposition home health service (06) | DRG 314 ==
LOC: ER 14:39 → EROBS 16:37 → 4W 16:37
PROVIDERS: Emergency Medicine; ADMIT Hospitalist; ATTEND Hospitalist
DX: I95.9 Hypotension, unspecified (principal); N17.0 Acute kidney failure with tubular necrosis; M19.90 Unspecified osteoarthritis, unspecified site; E87.6 Hypokalemia; E86.0 Dehydration; I10 Essential (primary) hypertension; G47.00 Insomnia, unspecified; M62.84 Sarcopenia; R63.4 Abnormal weight loss; Z86.73 Personal history of transient ischemic attack (TIA), and cerebral infarction without residual deficits; Z87.891 Personal history of nicotine dependence; Z68.24 Body mass index [BMI] 24.0-24.9, adult; Z79.899 Other long term (current) drug therapy
CPT/HCPCS: 10045

== ENCOUNTER 2021-12-01 17:56 | Inpatient (IN) | payer OTHER ==
[~2021-12-01] VITALS: Ht 157.5 cm; Wt 72.2 kg
--- NOTE | ~2021-12-01 | EMS ---
[address] [address] EMS Patient Care Report Name: MARK PORTER Room #: 447-P ADM IN M.R.#: [id number] Admission: 12/01/21 Attend Phys: Jose Arellano, Discharge: Date of : 49 Report #: [id number] THIS REPORT FOR: //name// Report Transmitted: 12/03/2021 15:08 EMS Care Summary [place], [place]/[facility] Incident [id number] @ 12/01/2021 17:01 Incident Location [address] [place] [address] Patient MARK PORTER Female, 76 Years 1945 Patient Address [address] [place] [address] Patient History Other,Hypertension (HTN),Stroke/CVA,Hyperlipidemia, Patient Allergies No known allergies, Patient Medications Atorvastatin, ASA, Amlodipine, Clopidogrel, Losartan, Vitamin B12, Chief Complaint lt hip pain s/p fall Disposition Transported No Lights/[place] Reason Falls Transported To [place] Narrative arrived on scene and located patient conscious and breathing sitting in a wheel chair that family had placed the patient in after finding her on the floor in the living room of their home patient states she was using her walker and tripped on the carpet area rug, patient states the [place] [address] EMS Patient Care Report Name: MARK PORTER Room #: 447-P ADM IN M.R.#: [id number] Admission: 12/01/21 Attend Phys: Jose Arellano, Discharge: Date of : 49 Report #: [id number] her and she landed on her lt hip patient denies loc denies striking her head states she is on blood thinner after her stroke and states she has deficits to her lt side paralysis and weakness patient denies neck or back pain denies pain to her rt leg or hip pain rated at 10 of 10 on pain scale and states like having a baby painful distance sensation is intact patient moved from wheel chair and placed on stretcher inside the residence transported without incident report given to sheetmetal patternmaker in room 8 at bed side all belongings turned over to sheetmetal patternmaker Initial Vitals @17:38P: 91,R: 18,BP: 101/65,Pain: 6/10,GCS: 15,Revised Trauma: 12, @17:40P: 91,R: 18,BP: 108/70,GCS: 15,SpO2: 82,Revised Trauma: 12, @17:29P: 66,R: 18,BP: 105/72,Pain: 10/10,GCS: 15,Glucose: 153,SpO2: 88,Revised Trauma: 12, @17:45P: 90,R: 18,Pain: 0/10,GCS: 15,SpO2: 93, @17:20P: 74,R: 18,Pain: 10/10,GCS: 15,Revised Trauma: 12, Assessments @17:19MENTAL:Event Oriented,Person Oriented,Place Oriented,Time Oriented,SKIN:HEENT:Head/Face: No Abnormalities,Neck/Airway: No Abnormalities,LUNG SOUNDS:General: No Abnormalities,ABDOMEN:General: No Abnormalities,PELVIS//GI:Tenderness,EXTREMITIES:Capillary Refill: Left Upper: < 2 Sec,Capillary Refill: Right Upper: < 2 Sec,Left Leg: Weakness,Left Leg: Paralysis,Left Arm: Weakness,Left Arm: Paralysis,Right Arm: No Abnormalities,Right Leg: No Abnormalities,PULSE:Radial: 2+ Normal,NEURO:No Abnormalities, Impression Injury of Hip Procedures @17:36 Fentanyl - 50 Micrograms (mcg) - Intravenous (IV) Response: Unchanged @17:19 ALS Assessment Response: UnchangedSucceeded @17:20 Oxygen FlowRate: 3 Device: Nasal Cannula (NC) Response: ImprovedSucceeded @17:21 3-Lead ECG Response: UnchangedSucceeded @17:28 IV Therapy - Saline Lock 10cc (20 ga) Site: Hand-Right Response: ImprovedSucceeded @17:22 IV Therapy - Saline Lock 0cc (20 ga) Site: Hand-Right Response: UnchangedFailed @17:40 Zofran - 4 Milligrams (mg) - Intravenous (IV) Response: Improved Timeline 17:00,Call Received 17:00,Dispatch Notified [address] [address] EMS Patient Care Report Name: CHARLOTTEMARK Room #: 447-P [facility] IN M.R.#: [id number] Admission: 12/01/21 Attend Phys: Jose Arellano, Discharge: Date of : 49 Report #: [id number] 17:01,Dispatched 17:02,En Route 17:17,On Scene 17:19,At Patient 17:19,ALS Assessment,Response: UnchangedSucceeded, 17:20,Oxygen FlowRate: 3 Device: Nasal Cannula (NC) Response: ImprovedSucceeded, 17:20,BP: 110/ M,PULSE: 74,RR: 18 R,SPO2: Ox,ETCO2: ,BG: ,PAIN: 10,GCS: 15, 17:21,3-Lead ECG,Response: UnchangedSucceeded, 17:22,IV Therapy - Saline Lock 0cc 20 ga Site: Hand-Right,Response: UnchangedFailed, 17:28,IV Therapy - Saline Lock 10cc 20 ga Site: Hand-Right,Response: ImprovedSucceeded, 17:29,BP: 105/72 M,PULSE: 66,RR: 18 R,SPO2: 88 Ox,ETCO2: ,B,PAIN: 10,GCS: 15, 17:36,Fentanyl - 50 Micrograms (mcg) - Intravenous (IV),Response: Unchanged 17:38,BP: 101/65 M,PULSE: 91,RR: 18 R,SPO2: Ox,ETCO2: ,BG: ,PAIN: 6,GCS: 15, 17:40,Zofran - 4 Milligrams (mg) - Intravenous (IV),Response: Improved 17:40,BP: 108/70 M,PULSE: 91,RR: 18 R,SPO2: 82 Ox,ETCO2: ,BG: ,PAIN: ,GCS: 15, 17:45,BP: / M,PULSE: 90,RR: 18 R,SPO2: 93 Ox,ETCO2: ,BG: ,PAIN: 0,GCS: 15, 17:45,Depart Scene 18:20,At Destination 18:36,Call Closed Disclaimer v1.1 Copyright 2021 [employer] This EMS Care Summary contains data elements from the applicable legal record (which may be displayed differently). It is designed to provide pertinent information for the following purposes: continuity of care, clinical quality, and state data reporting. The complete legal record is available to ED staff and administrators of the receiving hospital in ES's Patient Tracker. All data is provided "as is."
--- NOTE | ~2021-12-01 | EMS ---
[address] [address] EMS Patient Care Report Name: MARK PORTER Room #: 170-8 ADM IN M.R.#: [id number] Admission: 12/01/21 Attend Phys: Jose Arellano, Discharge: Date of : 49 Report #: [id number] THIS REPORT FOR: //name// Report Transmitted: 12/01/2021 18:51 EMS Care Summary [place], [place]/[facility] Incident [id number] @ 12/01/2021 17:01 Incident Location [address] [place] [address] Patient MARK PORTER Female, 76 Years 1945 Patient Address [address] [place] [address] Patient History Other,Hypertension (HTN),Stroke/CVA,Hyperlipidemia, Patient Allergies No known allergies, Patient Medications Atorvastatin, ASA, Amlodipine, Clopidogrel, Losartan, Vitamin B12, Chief Complaint lt hip pain s/p fall Disposition Transported No Lights/[place] Reason Falls Transported To [facility] Narrative arrived on scene and located patient conscious and breathing sitting in a wheel chair that family had placed the patient in after finding her on the floor in the living room of their home patient states she was using her walker and tripped on the carpet area rug, patient states the carpet [place] [address] EMS Patient Care Report Name: MARK PORTER Room #: 170-8 ADM IN M.R.#: [id number] Admission: 12/01/21 Attend Phys: Jose Arellano, Discharge: Date of : 49 Report #: [id number] her and she landed on her lt hip patient denies loc denies striking her head states she is on blood thinner after her stroke and states she has deficits to her lt side paralysis and weakness patient denies neck or back pain denies pain to her rt leg or hip pain rated at 10 of 10 on pain scale and states like having a baby painful distance sensation is intact patient moved from wheel chair and placed on stretcher inside the residence transported without incident report given to international bank manager in room 8 at bed side all belongings turned over to international bank manager Initial Vitals @17:38P: 91,R: 18,BP: 101/65,Pain: 6/10,GCS: 15,Revised Trauma: 12, @17:40P: 91,R: 18,BP: 108/70,GCS: 15,SpO2: 82,Revised Trauma: 12, @17:29P: 66,R: 18,BP: 105/72,Pain: 10/10,GCS: 15,Glucose: 153,SpO2: 88,Revised Trauma: 12, @17:45P: 90,R: 18,Pain: 0/10,GCS: 15,SpO2: 93, @17:20P: 74,R: 18,Pain: 10/10,GCS: 15,Revised Trauma: 12, Assessments @17:19MENTAL:Time Oriented,Place Oriented,Person Oriented,Event Oriented,SKIN:HEENT:Head/Face: No Abnormalities,Neck/Airway: No Abnormalities,LUNG SOUNDS:General: No Abnormalities,ABDOMEN:General: No Abnormalities,PELVIS//GI:Tenderness,EXTREMITIES:Left Arm: Paralysis,Left Arm: Weakness,Left Leg: Paralysis,Left Leg: Weakness,Capillary Refill: Right Upper: < 2 Sec,Capillary Refill: Left Upper: < 2 Sec,Right Arm: No Abnormalities,Right Leg: No Abnormalities,PULSE:Radial: 2+ Normal,NEURO:No Abnormalities, Impression Injury of Hip Procedures @17:36 Fentanyl - 50 Micrograms (mcg) - Intravenous (IV) Response: Unchanged @17:19 ALS Assessment Response: UnchangedSucceeded @17:20 Oxygen FlowRate: 3 Device: Nasal Cannula (NC) Response: ImprovedSucceeded @17:21 3-Lead ECG Response: UnchangedSucceeded @17:28 IV Therapy - Saline Lock 10cc (20 ga) Site: Hand-Right Response: ImprovedSucceeded @17:22 IV Therapy - Saline Lock 0cc (20 ga) Site: Hand-Right Response: UnchangedFailed @17:40 Zofran - 4 Milligrams (mg) - Intravenous (IV) Response: Improved Timeline 17:00,Call Received 17:00,Dispatch Notified 17:01,Dispatched [address] [address] EMS Patient Care Report Name: MARK PORTER Room #: 170-8 ADM IN M.R.#: [id number] Admission: 12/01/21 Attend Phys: Jose Arellano, Discharge: Date of : 49 Report #: [id number] 17:02,En Route 17:17,On Scene 17:19,At Patient 17:19,ALS Assessment,Response: UnchangedSucceeded, 17:20,Oxygen FlowRate: 3 Device: Nasal Cannula (NC) Response: ImprovedSucceeded, 17:20,BP: 110/ M,PULSE: 74,RR: 18 R,SPO2: Ox,ETCO2: ,BG: ,PAIN: 10,GCS: 15, 17:21,3-Lead ECG,Response: UnchangedSucceeded, 17:22,IV Therapy - Saline Lock 0cc 20 ga Site: Hand-Right,Response: UnchangedFailed, 17:28,IV Therapy - Saline Lock 10cc 20 ga Site: Hand-Right,Response: ImprovedSucceeded, 17:29,BP: 105/72 M,PULSE: 66,RR: 18 R,SPO2: 88 Ox,ETCO2: ,B,PAIN: 10,GCS: 15, 17:36,Fentanyl - 50 Micrograms (mcg) - Intravenous (IV),Response: Unchanged 17:38,BP: 101/65 M,PULSE: 91,RR: 18 R,SPO2: Ox,ETCO2: ,BG: ,PAIN: 6,GCS: 15, 17:40,Zofran - 4 Milligrams (mg) - Intravenous (IV),Response: Improved 17:40,BP: 108/70 M,PULSE: 91,RR: 18 R,SPO2: 82 Ox,ETCO2: ,BG: ,PAIN: ,GCS: 15, 17:45,BP: / M,PULSE: 90,RR: 18 R,SPO2: 93 Ox,ETCO2: ,BG: ,PAIN: 0,GCS: 15, 17:45,Depart Scene 18:20,At Destination 18:36,Call Closed Disclaimer v1.1 Copyright 2021 [employer] This EMS Care Summary contains data elements from the applicable legal record (which may be displayed differently). It is designed to provide pertinent information for the following purposes: continuity of care, clinical quality, and state data reporting. The complete legal record is available to ED staff and administrators of the receiving hospital in ES's Patient Tracker. All data is provided "as is."
[~2021-12-01 17:56] MED LIST changes: +HYDROCHLOROTH12.5 M2 PO; +NORVASC 2.5 MG2.5 M1 PO; +ZESTRIL40 MG PO
[2021-12-01 17:57] VITALS: BP 137/74
[2021-12-01] MEDS ORDERED: NORVASC5 MG PO (18:03)
[2021-12-01] MEDS ORDERED: LEXAPRO 10 MG T10 M1 PO (18:04)
[2021-12-01] MEDS ORDERED: LOSARTAN-HCTZ1 EAC2 PO (18:04)
[2021-12-01 19:03] LABS: BASOPHILS 0.4 % (0.0-2.0); HEMATOCRIT 41.1 % (37.0-47.0); HEMOGLOBIN 13.9 gm/dL (12.0-15.0); MCH 32.2 pg (26.0-34.0); MCHC 33.8 g/dL (28.0-37.0); MCV 95.4 fL (80.0-100.0); MONOCYTES 3.4 % (1.0-8.0); PLATELET COUNT 317 thou/uL (150-400); POLYS 82.2 % (36.0-66.0); RBC 4.31 mil/uL (4.20-5.00); RDW 13.3 % (10.5-14.5); WBC 15.8 thou/uL (4.0-11.0)
[2021-12-01 19:17] LABS: APTT 22.6 Seconds (24.5-32.8); INR 0.99; PROTIME 10.8 Seconds (10.5-12.1)
[2021-12-01 19:20] LABS: CALCIUM 9.2 mg/dL (8.5-10.1); CREATININE 1.3 mg/dL (0.6-1.0); POTASSIUM 3.6 mmol/L (3.5-5.1)
[2021-12-01 19:30] LABS: ALBUMIN 3.8 g/dL (3.4-5.0); TOTAL BILIRUBIN 0.3 mg/dL (0.2-1.0); TOTAL PROTEIN 6.9 g/dL (6.4-8.2)
[2021-12-01 19:55] LABS: URINE BILIRUBIN NEGATIVE (Negative); URINE BLOOD NEGATIVE (Negative); URINE CLARITY CLEAR; URINE COLOR YELLOW; URINE GLUCOSE-RANDOM* NEGATIVE (Negative); URINE KETONES NEGATIVE (Negative); URINE LEUKOCYTES-REFLEX NEGATIVE (Negative); URINE NITRITE-REFLEX NEGATIVE (Negative); URINE PROTEIN (DIPSTICK) NEGATIVE (Negative); URINE SPECIFIC GRAVITY 1.025 (1.005-1.035); URINE UROBILINOGEN 0.2 E.U./dl (0.2-1.0)
[2021-12-01 20:21] VITALS: BP 116/67
[2021-12-01 20:48] VITALS: BP 116/64
[2021-12-01 22:30] VITALS: BP 134/76
--- NOTE | 2021-12-02 03:19 | NUR ---
PT ARRIVED FROM ER AT AROUND 2100. PT ALERT AND ORIENTED X 4.VERONICA TO D/D.SR/ST ON TELEMETRY. ON 11/30L/NC, DENIES SOA, NOTED TO HAVE SOME OCCASIONAL CONGESTED COUGH.AFEBRILE.PAIN MANAGED BY MORPHINE.NPO AFTER MIDNOC, SHE HAS A LEFT HIP FRACTURE. PLAN FOR SURGERY TOMORROW.CALL LIGHT WITHIN REACH.
[2021-12-02 05:18] LABS: HEMATOCRIT 39.4 % (37.0-47.0); HEMOGLOBIN 13.1 gm/dL (12.0-15.0); MCH 32.2 pg (26.0-34.0); MCHC 33.2 g/dL (28.0-37.0); MCV 97.3 fL (80.0-100.0); RBC 4.05 mil/uL (4.20-5.00); RDW 13.3 % (10.5-14.5); WBC 11.7 thou/uL (4.0-11.0)
[2021-12-02 05:20] LABS: CALCIUM 8.4 mg/dL (8.5-10.1); POTASSIUM 3.8 mmol/L (3.5-5.1)
[2021-12-02 08:03] VITALS: BP 103/66
--- NOTE | 2021-12-02 08:31 | EKG ---
[address] [place] [address] ELECTROCARDIOGRAM REPORT Name: MARK PORTER Room #: 447-P ADM IN M.R.#: [id number] Admission: 12/01/21 Attend Phys: Jose Arellano, Discharge: Date of : 49 Report #: [id number] [facility] ED Test Date: 2021-12-01 Test Time: 18:14:51 Pat Name: MARK PORTER Department: Room: [facility] Gender: F Engine Wiper: Linda GARCIA : 1945 Requested By: Vida Frankel Order Number: [id number] MD: Mike Jones Measurements Intervals [place] Rate: 93 P: 45 [place]: 181 QRS: -29 QRSD: 89 T: 9 QT: 435 QTc: 542 Interpretive Statements Sinus rhythm Inferior infarct, old Prolonged QT interval Compared to ECG 06/02/2020 15:30:03 Prolonged QT interval now present Sinus tachycardia no longer present Electronically Signed On 12-02-2021 8:31:09 SENIOR ASIC DESIGN ENGINEER by Mike Jones [email or web address] <ELECTRONICALLY SIGNED> By: Mike Jones MD, [facility] 12/02/2131 1814 1814 Mike Jones MD, [facility] /EPI
--- NOTE | 2021-12-02 15:09 | NUR ---
Met with patient and dtr at bedside. Patient admits post fall at home. She has a walker and cane at home. She uses the walker in the home. Patient reports all needs on one level at home. Dtr reports she lives nearby and at her home often. Patient sustained hip fx. Discussed role of casemgt and possible need for post acute care. Gave dtr [facility] list to review. Therapy evals in process. Casemgt following.
[2021-12-02 15:59] VITALS: BP 120/66
--- NOTE | 2021-12-02 18:30 | NUR ---
PT ASSESSED AT START OF SHIFT. PT REQUIRING 5L O2 PER NC W/ SAT FROM UPPER 80'S TO LOW 90'S. PT NORMALLY ON RA. SHE IS NOTED TO BE A MOUTH BREATHER AND NOT WANTING TO TAKE DEEP BREATHS FOR FEAR OF PAIN IN FRACTURED HIP. DR. BENAVIDES CONSULTED AND CALLED TO CHECK ON PT. DR. KNOWLES MADE ROUNDS AND ORDERED CT ANGIO FOR POTENTIAL CLOTS WHICH WAS NEGATIVE. PT RECEIVING RT TRMTS Q4HRS. PT NPO FOR SURGERY MOST OF SHIFT. WENT DOWN TO OR LATE AFTERNOON BUT SURGERY WAS CANCELLED TODAY AND RESCHEDULED FOR TOMORROW TO GIVE MORE TIME FOR LUNGS TO GET BETTER. DR. BENAVIDES ROUNDED THIS AFTERNOON.
--- NOTE | 2021-12-03 02:15 | NUR ---
Pt alert and pleasant. LLE is folded to the knee and supported by pillow. Afebrile.Tylenol given x 1 for left heel soreness,relief obtained.NPO after midnight with possible surgery tomorrow.
[2021-12-03 07:29] VITALS: BP 136/61
--- NOTE | 2021-12-03 08:10 | EKG ---
[address] [place] [address] ELECTROCARDIOGRAM REPORT Name: CHARLOTTEMARK Room #: 447-P ADM IN M.R.#: [id number] Admission: 12/01/21 Attend Phys: Jose Arellano, Discharge: Date of : 49 Report #: [id number] [facility] Test Date: 2021-12-02 Test Time: 15:25:08 Pat Name: MARK PORTER Department: Room: [facility] Gender: F Vp Account Director: LISA : 1945 Requested By: Xena Chávez Order Number: [id number] MD: Mike Jones Measurements Intervals [place] Rate: 101 P: 54 [place]: 173 QRS: -32 QRSD: 80 T: 31 QT: 392 QTc: 509 Interpretive Statements Sinus tachycardia Left axis deviation Nonspecific ST and T wave abnormality Prolonged QT interval Compared to ECG 12/01/2021 18:14:51 Inferior Q waves are less prominent Electronically Signed On 12-03-2021 8:09:59 PERFORMANCE IMPROVEMENT COORDINATOR by Mike Jones [email or web address] <ELECTRONICALLY SIGNED> By: Mike Jones MD, [facility] 12/03/21 0809 1525 1525 Mike Jones MD, [facility] /EPI
--- NOTE | 2021-12-03 09:35 | NUR ---
ASSUMED PT CARE THIS AM. PT IS ALERT & ORIENTED X4. PT HAS IV SITE ON RFA AND RAC SALINE LOCKED. PT HAS TELE MONITOR ON. PT WAS ON 8L NC O2 THIS AM. CALLED RT AND TOLD HIM THAT HOSPITALIST WANTS MASK FOR PT. PT IS CURRENTLY ON VENTI MASK 50% 15L 02. HOSPITALIST ORDERED CHEST XRAY. PT HAS BEEN NPO SINCE MIDNIGHT. PLAN IS TO HAVE SURGERY THIS AFTERNOON. PT HAS VERONICA CATH IN PLACE. PT DAUGHTER AT THE BEDSIDE. CALLED DR BENAVIDES FOR FOLLOW UP PER HOSPITALIST REQUEST AND AWAITING TO RETURN MY CALL. WILL FOLLOW POC.
[2021-12-03 10:10] LABS: HEMATOCRIT 34.8 % (37.0-47.0); HEMOGLOBIN 11.6 gm/dL (12.0-15.0); MCH 31.9 pg (26.0-34.0); MCHC 33.4 g/dL (28.0-37.0); MCV 95.6 fL (80.0-100.0); RBC 3.64 mil/uL (4.20-5.00); RDW 13.7 % (10.5-14.5); WBC 15.4 thou/uL (4.0-11.0)
[2021-12-03 10:21] LABS: CALCIUM 8.7 mg/dL (8.5-10.1); CREATININE 0.8 mg/dL (0.6-1.0); MAGNESIUM 1.9 mg/dL (1.8-2.4); POTASSIUM 3.3 mmol/L (3.5-5.1)
[2021-12-03 12:22] VITALS: BP 145/84
[2021-12-03 16:05] VITALS: BP 152/79
[2021-12-03 20:46] VITALS: BP 156/61
--- NOTE | 2021-12-04 02:33 | NUR ---
PT IS A/O X4 WITH INTERMITTENT CONFUSION THROUGHOUT THE NOC. CURRENTLY ON VENTIMASK AT 50% OXYGEN WITH CONTINOUS PULSE OX IN PLACE. VERONICA IN PLACE. NO BM THIS SHIFT. CALLS OUT APPROPRIATELY FOR ASSISTANCE. VSS. FALL PRECAUTIONS IN PLACE, CALL LIGHT IS WITHIN REACH. MEDICATIONS GIVEN PER MAR.
[2021-12-04 03:09] LABS: HEMATOCRIT 36.2 % (37.0-47.0); HEMOGLOBIN 11.9 gm/dL (12.0-15.0); MCH 31.8 pg (26.0-34.0); MCHC 32.8 g/dL (28.0-37.0); MCV 96.7 fL (80.0-100.0); RBC 3.75 mil/uL (4.20-5.00); RDW 14.1 % (10.5-14.5); WBC 16.2 thou/uL (4.0-11.0)
[2021-12-04 03:22] VITALS: BP 148/69
[2021-12-04 04:42] LABS: CALCIUM 8.4 mg/dL (8.5-10.1); CREATININE 0.7 mg/dL (0.6-1.0); POTASSIUM 3.5 mmol/L (3.5-5.1)
--- NOTE | 2021-12-04 07:21 | NUR ---
ASSUMED PT CARE THIS AM. CALLED OR THIS AM TO CONFIRM PT IS SCHEDULE FOR SURGERY. PER OR SURGERY AT 1000 AND UPDATED PT DAUGHTER THIS AM. WILL HOLD ALL PO MEDS THIS AM. PT HAS BEEN NPO SINCE MIDNIGHT.
[2021-12-04 08:19] VITALS: BP 156/95
--- NOTE | 2021-12-04 16:24 | NUR ---
patient on 15 liters ventimask. Plan for sx of hip in am. Casemgt following for post acute care. Dtr has skilled list. She has been frustrated not having sx sooner than tomorrow. Dr Wyatt spoke with her regarding concerns.
[2021-12-04 16:54] VITALS: BP 127/73
[2021-12-04 19:16] VITALS: BP 101/66
[2021-12-05 02:38] LABS: HEMATOCRIT 35.4 % (37.0-47.0); HEMOGLOBIN 11.8 gm/dL (12.0-15.0); MCHC 33.2 g/dL (28.0-37.0); MCV 96.2 fL (80.0-100.0); RBC 3.68 mil/uL (4.20-5.00); RDW 13.5 % (10.5-14.5); WBC 11.1 thou/uL (4.0-11.0)
[2021-12-05 04:01] LABS: CALCIUM 8.5 mg/dL (8.5-10.1); POTASSIUM 3.7 mmol/L (3.5-5.1)
--- NOTE | 2021-12-05 05:06 | NUR ---
NO ACUTE EVENTS THIS SHIFT. PT REMAINS ON 15L 50% OXYMASK SATING WELL. VERONICA IN PLACE- MINIMAL OUTPUT. PT HAS REMAIN NPO SINCE MIDNIGHT FOR PENDING SURGERY.
--- NOTE | 2021-12-05 07:34 | NUR ---
AT THE BEGINNING OF THE SHIFT, TOOK PT DOWN TO SURGERY. AWAITING FOR PT TO COME BACK FROM SURGERY. PT DAUGHTER WAS AT THE BEDSIDE. NIGHT NURSE GAVE TO OR NURSE IV ANTIBIOTIC THIS AM. WILL FOLLOW POC.
[2021-12-05 16:05] VITALS: BP 101/59
[2021-12-05 19:27] VITALS: BP 106/51
--- NOTE | 2021-12-06 03:47 | NUR ---
RECEIVED PATIENT AT 1900H.ASSESSMENT DONE CHARTED.MEDS GIVEN PER DEC.HAD COMPLAINTS OF LEFT LOWER BACK PAIN, PRN PAIN MEDICATION GIVEN.ALL NEEDS ATTENDED.TO CONTINOUSLY MONITOR.
[2021-12-06 04:00] VITALS: BP 114/58
[2021-12-06 04:14] LABS: HEMATOCRIT 32.4 % (37.0-47.0); HEMOGLOBIN 10.9 gm/dL (12.0-15.0); MCHC 33.6 g/dL (28.0-37.0); MCV 95.2 fL (80.0-100.0); RBC 3.4 mil/uL (4.20-5.00); RDW 13.4 % (10.5-14.5); WBC 10.5 thou/uL (4.0-11.0)
[2021-12-06 04:57] LABS: CALCIUM 7.7 mg/dL (8.5-10.1); POTASSIUM 3.6 mmol/L (3.5-5.1)
[2021-12-06 08:04] VITALS: BP 104/84
--- NOTE | 2021-12-06 11:10 | NUR ---
CHART REVIEWED AND DISCUSSED WITH CARE TEAM. CM MET WITH PT THIS DAY AT BEDSIDE. PT REQUEST I SPEAK WITH DAUGHTER HEAVEN. CM CALLED HEAVEN AND SPOKE TO HER ABOUT SNF CHOICES. INFORMED DAUGHTER PT MAY BE CANDIDATE FOR [facility] WELL. WILL CONTINUE TO MONTIOR THERAPY RECOMMENDATIONS. CM SPOKE WITH 5N LIASON WHO INDICATED DR Baeza LOOKING AT PT AND WILL LET CM KNOW IF GOOD 5N CANDIDATE. CM REVIEWED SNF CHOICES WITH PTS DAUGHTER HEAVEN. SNF REFERRALS SENT TO [facility] AND [facility] PER PT AND DAUGHTER CHOICE. PT REMAINS HYPOXIC AND WILL BE HERE THROUGH THE WEEKEND PER PHYSICIAN. CM FOLLOWING FOR DC PLANNING.
[2021-12-06 11:34] VITALS: BP 69/45
--- NOTE | 2021-12-06 13:41 | O ---
[facility] [place] [address] OPERATIVE REPORT Name: MARK PORTER Room #: 218-P ADM IN M.R.#: [id number] Admission: 12/01/21 Attend Phys: Jose Arellano, Discharge: Date of : 49 Report #: [id number] THIS REPORT FOR: cc: Dorian Meyer James A. DO Abraham, Scott M. MD ~ DATE OF SERVICE: 12/01/2021 PREOPERATIVE DIAGNOSIS: Displaced left femoral neck fracture. POSTOPERATIVE DIAGNOSIS: Displaced left femoral neck fracture. PROCEDURE: Left hip hemiarthroplasty. SURGEON: Baudilio Crump MD ANESTHESIA: LMA. IMPLANTS: A [employer]arte [employer]hew size 10 Conquest cemented stem with a size 44+5 cobalt chrome unipolar head. ESTIMATED BLOOD LOSS: 50 mL. COMPLICATIONS: None. SPECIMENS: None. CONDITION UPON LEAVING THE OR: Stable. INDICATIONS FOR PROCEDURE: The patient is a 76-year-old female who fell and sustained a left displaced femoral neck fracture. After discussion with she and her family, they elected for left hip hemiarthroplasty. DESCRIPTION OF PROCEDURE: Risks, benefits, alternatives, complications were discussed in detail with the patient including but not limited to risk of anesthesia, risk of damage to nerves, arteries, blood vessels, risk for infection, bleeding, risk for continued hip pain, leg length discrepancy, instability and need for reoperation. Informed consent was obtained from the patient. Left hip was appropriately marked in the preoperative holding area. IV Ancef was given for preoperative antibiotics. She was brought to the operating room and placed in supine position on the operating room table. LMA anesthesia was induced without complication. She was then placed in the right lateral decubitus position with the left hip uppermost. Left hip and lower extremity were prepped and draped in normal sterile fashion. Timeout was performed properly identifying the patient and procedure as well as the instrumentation and implants. All in the operating room were in agreement. A [address] [address] OPERATIVE REPORT Name: MARK PORTER Room #: 218-P [facility] IN M.R.#: [id number] Admission: 12/01/21 Attend Phys: Jose Arellano, Discharge: Date of : 49 Report #: [id number] standard posterior approach to the left hip was made with 10 blade through the skin. Dissection was taken down to fascia with Bovie cautery. Khoury elevator was used to clean off the IT band fascia. Fresh 10 blade was used to make a fascial incision. This was taken proximally and distally with curved Penn scissor. Charnley retractor was placed. Trochanteric bursa was taken down with Bovie cautery. Piriformis tendon was identified, tagged and taken down with Bovie. Short external rotators were also taken down with Bovie cautery. Capsulotomy was made and capsule ends were tagged for later repair. There was an obvious femoral neck fracture. A femoral neck cut was made as a cleanup cut on the femoral neck and then the femoral head was removed. This was sized, found to be a size 44. Size 44 trial head was placed in the acetabulum and found to have a good fit. Attention was turned to the femur. This was reamed and broached up to a size 12, at which point the size 12 broach was stable. A trial was made with a standard offset neck and a 44+0 head. Hip was reduced, taken through range of motion, found to be stable, found to be short on the left compared to the right. It was felt we could make up for this by increasing the leg length on the final implant. Broach was removed. Canal was prepared and a final size 10 Conquest, a standard offset stem was cemented in place using standard cementation techniques. After the cement cured, this was trialed with a 44 with a +4 neck. Hip was reduced, taken through range of motion, found to be stable, found to have equal leg lengths. Hip was dislocated one last time and a final size 44 cobalt chrome head with a +4 neck to be stable, found to have equal leg lengths. Wound was thoroughly irrigated with normal saline. A gram of vancomycin was placed deep in the joint. The capsule and piriformis were repaired with 0 FiberWire. Fascia was closed with 0 Vicryl. Skin was closed with 2-0 Vicryl, skin staple and a ALIYAH dressing was applied. The patient tolerated this procedure well and went to recovery room under care of anesthesia postoperatively. <ELECTRONICALLY SIGNED> By: Baudilio Crump MD 12/06/21 1341 [id number] Baudilio Crump MD /raf
[2021-12-06 15:22] VITALS: BP 107/59
[2021-12-06 19:43] VITALS: BP 108/64
[2021-12-07 03:34] VITALS: BP 123/76
--- NOTE | 2021-12-07 03:48 | NUR ---
RECEIVED THE PATIENT AT 1900H.ASSESSMENT DONE CHARTED.MEDS GIVEN PER DEC.ALL NEEDS ATTENDED.TO CONTINOUSLY MONITOR.
[2021-12-07 08:10] VITALS: BP 119/69
[2021-12-07 15:50] VITALS: BP 108/65
[2021-12-07 20:18] VITALS: BP 128/71
[2021-12-08 04:47] VITALS: BP 146/78
--- NOTE | 2021-12-08 06:22 | NUR ---
ASSUME CARE 1900. PT/VITALS STAB;LE. INTERMITTENT LOWER BACK PAIN WITH RELIEF FROM TYLENOL. A/O X 4. NO DISTRESS NOTED DURING SHIFT. SR ON MONITOR. ASSESSMENT CHARTED. PROGRESSING MODERATERLY WITH OPOC. PLAN IS TO CONTINUE TO MONITOR ACTIVTIY LEVEL, MONITOR NATHALIA INFECTION, ENSURE WOUND HEALING, AND D/C WITHIN A FEW DAYS. WILL CONTINUE TO FOLLIOW WITH POC
[2021-12-08 08:10] VITALS: BP 149/74
[2021-12-08 12:15] VITALS: BP 116/62
[2021-12-08 16:30] VITALS: BP 133/76
[2021-12-08 19:24] VITALS: BP 112/69
[2021-12-09 04:31] VITALS: BP 138/68
[2021-12-09 04:33] LABS: HEMATOCRIT 34.7 % (37.0-47.0); HEMOGLOBIN 11.5 gm/dL (12.0-15.0); MCH 31.9 pg (26.0-34.0); MCHC 33.2 g/dL (28.0-37.0); MCV 96.1 fL (80.0-100.0); RBC 3.61 mil/uL (4.20-5.00); RDW 13.7 % (10.5-14.5); WBC 11.6 thou/uL (4.0-11.0)
[2021-12-09 04:52] LABS: CALCIUM 8.5 mg/dL (8.5-10.1); CREATININE 0.8 mg/dL (0.6-1.0); POTASSIUM 3.9 mmol/L (3.5-5.1)
--- NOTE | 2021-12-09 06:22 | NUR ---
ASSUMED CARE OF PATIENT AT 1900. A&O X 4. SR ON TELE. 3L VIA NC WITH O2 SAT ABOVE 95%. VERONICA IN PLACE AND PATENT. C/O LOWER BACK PAIN, RELIEVED WITH ACET. PT/OT. PATIENT RESTING COMFORTABLY IN BED. WILL CONTINUE TO MONITOR.
[2021-12-09 08:10] VITALS: BP 138/66
[2021-12-09 12:35] VITALS: BP 124/61
--- NOTE | 2021-12-09 13:40 | NUR ---
Assumed care of pt this AM. Pt is A&O x4, on 2L NC at beginning of shift which has since been titrated to 1L. Pt is Sr on the monitor. Hip precautions in place. Pt up to chair today. Pt c/o back pain & states tylenol helps relieve pain. Moe in place & patent draining yellow urine. High fall precautions in place. Pt calls appropriately.
--- NOTE | 2021-12-09 15:56 | NUR ---
CHART REVIEWED AND DISCUSSED WITH CARE TEAM. CM SPOKE TO PTS AYDEE COLLADO VIA PHONE REGARDING [facility] ACCEPTING PT. HAS NOT SUBMITTED AUTH AT THIS TIME. PTS DAUGHTER REPORTS PT AND HERSELF REALLY WANT TO GO TO [facility] INSTEAD OF [facility]. CM SPOKE TO [facility] ON 5N. WAS INFORMED THEY WOULD ACCEPT PT AND SUBMIT FOR AUTH. ALL PARTIES AWARE. CM WILL CONTINUE TO FOLLOW FOR DC PLANNNING.
[2021-12-09 17:05] VITALS: BP 107/67
--- NOTE | 2021-12-09 17:12 | NUR ---
PATIENT SEEN BY DR. GOODEN AND ACCEPTED FOR ACUTE REHAB STAY PENDING INSURANCE AUTHORIZATON. AUTHORIZATION REQUESTED THIS DATE AND CLINICAL INFORMATION SENT TO INSURANCE. WILL AWAIT ANSWER FROM INSURANCE.
[2021-12-09 20:14] VITALS: BP 107/60
[2021-12-10 04:50] VITALS: BP 154/78
[2021-12-10 08:05] VITALS: BP 109/62
--- NOTE | 2021-12-10 11:39 | NUR ---
CHART REVIEWED AND DISCUSSED WITH CARE TEAM. CM SPOKE TO N STANLEY AND INFORMED OF [facility]ENER REQUESTING PEER TO PEER THIS DAY AT 1430. [facility] ALREADY AWARE. CM LEFT PTS DAUGHTER HEAVEN A MESSAGE NOTIFYING OF PEER TO PEER. PLAN IF FOR PT TO TRANSFER TO REHAB THIS DAY ONCE INS APPROVED. CM FOLLOWING.
[2021-12-10 11:55] VITALS: BP 118/56
[2021-12-10] MEDS ORDERED: ACETAMINOPHEN325 M1 PO (12:28)
[2021-12-10] MEDS ORDERED: HYDROCHLOROTH12.5 M1 PO (12:28)
[2021-12-10] MEDS ORDERED: HYDROCODON-ACE1 EAC7 PO (12:28)
[2021-12-10] MEDS ORDERED: VIBRAMYCIN 100100 MG PO (12:53)
[2021-12-10] MEDS ORDERED: PREDNISONE 10 M10 M1 PO (12:53)
[2021-12-10 15:55] VITALS: BP 145/75
--- NOTE | 2021-12-10 17:24 | NUR ---
PEER TO PEER COMPLETED THIS DATE AND DENIAL FOR ACUTE REHAB AUTHORIZATION UPHELD. PATIENT AND DAUGHTER REQUESTED THAT AN APPEAL BE MADE. DAUGHTER WAS GIVEN [facility] PHONE NUMBER TO INITIATE APPEAL. CLINICAL INFORMATION FAXED THIS DATE. APPEAL PHONE: FAX: WILL AWAIT RESPONSE FROM INSURANCE COMPANY.
[2021-12-10 20:30] VITALS: BP 116/64
--- NOTE | 2021-12-11 03:52 | NUR ---
Assumed pt care at 1900. Pt is alert and oriented. No sign of distres snoterd in pt. Pt is stable. Assessment completed and documented. Verbalized pain. Fall precaution in place. Scheduled meds administered to pt. Pt is stable through the night. Continue to monitor. No further needs at this time.
[2021-12-11 04:45] VITALS: BP 147/60
[2021-12-11 07:29] VITALS: BP 136/63
[2021-12-11 11:19] VITALS: BP 107/56
--- NOTE | 2021-12-11 13:48 | NUR ---
Nutrition: pt admitted with left hip fracture, S/P hemiarthroplasty. Reports good appetite however noted po intake only 25-50% of meals. Voiced dislike of diet order-heart healthy. PMH: CVA, HTN, HLD. RD reviewed alternative menu choices with pt and assisted with dinner meal. Pt appeared happy to know about other choices. Stable weights. Currently awaiting auth for acute rehab. Low nutrition risk.
[2021-12-11 15:01] VITALS: BP 103/47
--- NOTE | 2021-12-11 15:09 | NUR ---
CHART REVIEWED AND DISCUSSED WITH CARE TEAM. CM SPOKE TO PTS DAUGHTER HEAVEN AT THIS TIME TO FOLLOW UP ON APPEAL FOR INS AUTH FOR REHAB. HEAVEN INIDCATED SHE JUST GOT OFF THE PHONE WITH [facility] REP. THEY INDICIATED THEY WERE STILL WORKING ON PTS APPEAL AT THIS TIME. PTS DAUGHTER HEAVEN INDICATED SHE WOULD FOLLOW UP WITH INS COMPANY TOMORROW. CM NOTIFIED 5N STANLEY. CM WILL CONTINUE TO FOLLOW FOR DC PLANNING.
--- NOTE | 2021-12-11 18:33 | NUR ---
ASSUMED PATIENT CARE AT 0700. A/O X4. ON 3L/NC. PATIENT VOID AFTER VERONICA OUT. SLOWLY TOWARDS POC GOALS.
[2021-12-11 20:15] VITALS: BP 97/75
--- NOTE | 2021-12-12 03:55 | NUR ---
Assumed pt care at 1900. Pt is alert and oriented. No sign of distress noted in pt. Verbalizes pain. Fall precaution in place. Assessment completed and documented. Scheduled meds administered to pt. No acute event noted through the night. Continue to monitor. No further needs at this time.
[2021-12-12 04:45] VITALS: BP 137/64
[2021-12-12 10:41] VITALS: BP 97/54
[2021-12-12 13:14] VITALS: BP 111/59
[2021-12-12 16:28] VITALS: BP 112/83
[2021-12-12 20:18] VITALS: BP 105/50
[2021-12-12 23:32] VITALS: BP 127/54
[2021-12-13 03:53] VITALS: BP 130/68
[2021-12-13 05:22] LABS: HEMATOCRIT 32.8 % (37.0-47.0); MCH 32.6 pg (26.0-34.0); MCHC 33.5 g/dL (28.0-37.0); MCV 97.5 fL (80.0-100.0); RBC 3.36 mil/uL (4.20-5.00); RDW 14.2 % (10.5-14.5); WBC 11.7 thou/uL (4.0-11.0)
[2021-12-13 05:45] LABS: CALCIUM 8.1 mg/dL (8.5-10.1); CREATININE 1.1 mg/dL (0.6-1.0); POTASSIUM 4.1 mmol/L (3.5-5.1)
[2021-12-13 08:25] VITALS: BP 111/55
[2021-12-13 12:17] VITALS: BP 120/53
--- NOTE | 2021-12-13 13:25 | NUR ---
CM SPOKE TO PTS KAROL COLLADO VIA PHONE. DAUGHTER INDICATED LAST NIGHT PT RECIEVED A VOICEMAIL ON PTS HOME PHONE INDICATING INS AUTH APPEAL HAS BEEN APPROVED. BAL[facility]IR SPOKE WITH REHAB [facility] WHO INDICATED THEY HAVE NOT HEARD THAT AT THIS TIME. LIASON CALLED [facility] AND INSRUCTED TO SABRINA A DECISION HAS NOT BEEN MADE AT THIS TME. BALBIR AND [facility] FOLLOWING FOR ACCEPTANCE/DENIAL. PLAN IS FOR PT TO CONTINUE TO DISCHARGE TO REHAB ONCE MEDICALLY STABLE TO DISCHARGE. SHOULD PT BE DENIED GOING TO REHAB, [facility] HAS ACCEPTED PT. [facility] WOULD HAVE TO SUBMIT FOR AUTH AGAIN. A RESULT PT WOULD BE HERE THROUGH THE WEEKEND WHILE AWAITING AUTH.
[2021-12-13 16:00] VITALS: BP 110/58
== END 2021-12-13 18:37 | DRG 521 ==
LOC: ER 17:56 → EROBS 19:37 → 4S 19:37 → 2N 12-05 15:17
PROVIDERS: Emergency Medicine; Hospitalist; Internal Medicine; Nurse Practitioner Family; Surgery; ADMIT Surgery; ATTEND Surgery
PROC: 0SRS0J9 Replacement of Left Hip Joint, Femoral Surface with Synthetic Substitute, Cemented, Open Approach (ICD-10-PCS; principal; 2021-12-01)
DX: S72.042A Displaced fracture of base of neck of left femur, initial encounter for closed fracture (principal); J96.01 Acute respiratory failure with hypoxia; J18.9 Pneumonia, unspecified organism; R65.11 Systemic inflammatory response syndrome (SIRS) of non-infectious origin with acute organ dysfunction; N17.9 Acute kidney failure, unspecified; J44.0 Chronic obstructive pulmonary disease with (acute) lower respiratory infection; Z20.822 Contact with and (suspected) exposure to COVID-19; W18.39XA Other fall on same level, initial encounter; Y93.89 Activity, other specified; Y92.89 Other specified places as the place of occurrence of the external cause; Y99.8 Other external cause status; E78.5 Hyperlipidemia, unspecified; F41.9 Anxiety disorder, unspecified; I95.9 Hypotension, unspecified; F32.A Depression, unspecified; D64.9 Anemia, unspecified; Z87.891 Personal history of nicotine dependence; Z86.73 Personal history of transient ischemic attack (TIA), and cerebral infarction without residual deficits
CPT/HCPCS: 10081; 10100; 50010; 50101; 50382; 50414; 51057; 51130; 51225; 51226; 51412; 53000; 53078; 56460; 56524; 56525; 56528; 56530; 57095; 57103; 57165; 62110; 62900; 64039; 70005

== ENCOUNTER 2021-12-13 15:49 | Inpatient (IN) | payer OTHER ==
[~2021-12-13] VITALS: Ht 157.5 cm; Wt 65.5 kg
[~2021-12-13 15:49] MED LIST changes: +ACETAMINOPHEN325 M1 PO; +HYDROCHLOROTH12.5 M1 PO; +HYDROCODON-ACE1 EAC7 PO; +LEXAPRO 10 MG T10 M1 PO; +LOSARTAN-HCTZ1 EAC2 PO; +PREDNISONE 10 M10 M1 PO; +VIBRAMYCIN 100100 MG PO
[2021-12-13 18:30] VITALS: BP 111/60
--- NOTE | 2021-12-13 23:23 | NUR ---
assumed care approx 1900 evening 12/13. pt had arrived to unit approx 1800 via w/c. pt alert and oriented x4, pleasant and cooperative. pt with caprice dressing to left hip c/d/i. pt with weakness to left side and left hand contracted. pt oriented to room, packet given and pt to sign consents in am. pt up to bsc to void twice with 2 person assist. pt took hs meds with water tolerating well. pt appears to be sleeping soundly, bed alarm on and call light in reach. will continue to monitor.
[2021-12-14 04:40] LABS: HEMATOCRIT 33.5 % (37.0-47.0); MCHC 32.9 g/dL (28.0-37.0); MCV 97.2 fL (80.0-100.0); RBC 3.44 mil/uL (4.20-5.00); RDW 14.2 % (10.5-14.5); WBC 14.8 thou/uL (4.0-11.0)
[2021-12-14 04:42] LABS: CALCIUM 8.3 mg/dL (8.5-10.1); CREATININE 0.9 mg/dL (0.6-1.0)
[2021-12-14 08:00] VITALS: BP 105/59
[2021-12-14 08:45] VITALS: BP 105/59
--- NOTE | 2021-12-14 16:30 | NUR ---
ASSUMED C/O PT AT 0700. PT UP TO BSC WITH MIN ASSIT OF 2. LEFT SIDED WEAKNESS D/T PREVIOUS CVA AND FALL WITH FX TO LEFT HIP. PT STEADY ONCE PT IS UP. PT CONTINENT OF B&B. PT WILLINGLY WORKS WITH THERAPIES. WILL CONTINUE TO MONITOR.
[2021-12-14 19:28] VITALS: BP 131/65
--- NOTE | 2021-12-15 03:06 | NUR ---
ASSUMED CARE AT 1915 OF 12/14. PATIENT IS A&OX4, ABLE TO MAKE NEEDS KNOWN. MODERATE ASSIST OF 1 WITH TRANSFER TO AND FROM W/C. LUE WEAKNESS NOTED. ALIYAH DRESSING TO LEFT HIP IS IN PLACE AND INTACT. REPORTED PAIN IN LEFT HIP, WIHC IS MANAGED WITH PRN PAIN MEDICATION. ASSITED WITH REPOSITIONING IN BED. REMAINS ON HIP PRECAUTIONS. FALL PRECAUTIONS IN PLACE, CALL LIGHT WITHIN REACH. WILL CONTINUE TO MONITOR.
[2021-12-15 07:00] VITALS: BP 128/60
--- NOTE | 2021-12-15 18:43 | NUR ---
Assessed patient at 0700, oriented x 4 with weakness noted in L upper extremety. Pain reported in L hip, tylenol given for pain with partial relief. Up to wheelchair with minimal assistance, eating breakfast in dining room. Daughter at bedside. Room air, no edema noted. Skin intact. PIV intact, flushes well with blood return. No concerns at this time.
[2021-12-15 19:21] VITALS: BP 99/63
--- NOTE | 2021-12-16 03:10 | NUR ---
ASSUMED CARE AT 191 OF 12/15. PATIENT IS A&OX4, ABLE TO MAKE NEEDS KNOW. REPORTS MILD PAIN IN LEFT HIP, WHICH MANAGED WITH PRN PAIN MEDICATION AND REPOSITIONING. ALIYAH DRESSING TO LEFT HIP REMAINS IN PLACE AND INTACT. MINIMAL ASSIST WITH TRANSFERS TO AND FROM W/C, USING GB. REMAINS ON HIP REPLACEMENT PRECAUTIONS. FALL PRECAUTIONS IN PLACE, CALL LIGHT WITHIN REACH. WILL CONTINUE TO MONITOR.
--- NOTE | 2021-12-16 08:30 | NUR ---
ASSISTED PT TO SIT UP IN THE BED AND TRANSFER TO /. PT ABLE TO PIVOT TO [facility] AND WHEEL TO BATHROOM AND TRANSFER FROM / TO TOILET. PT VOIDED AND BACK TO [facility] FOR BREAKFAST. PT LEFT HAND IS CONTRACTED AND UNABLE TO USE. PT DENIES ANY PAIN. LUNGS CLEAR. PT SIGNED ADMIT PAPERS ALSO AT THIS TIME. PT SAID SHE THOUGHT HER DTR. WAS GOING TO SIGN. PT TOOK MEDS WHOLE WITH WATER.
[2021-12-16 08:40] VITALS: BP 104/67
--- NOTE | 2021-12-16 12:28 | NUR ---
Nutrition: pt admitted to rehab unit S/P Left hemiarthroplasty, hip fx. Stable weights. Good appetite reported, Pt eating 50-75% of meals and orders meals as desired. On bowel regimen, folic acid. 12/14 BM. Low nutrition risk
--- NOTE | 2021-12-16 15:55 | NUR ---
76-year-old lady was admitted after a fall with left hip pain and was diagnosed with left hip fracture status post open reduction internal fixation she was also found to have acute respiratory failure due to pneumonia now with decline in self-care and mobility. CT of the chest indicated infiltrates and chronic changes no PE pulmonology was consulted patient started antibiotics. She lives alone in 1 level home. Has dme: walker, cane, wheel chair from [facility], and bathe bench. Had [facility] in the past and are agreeable to using them again if needs [facility] [place].
[2021-12-16 19:29] VITALS: BP 132/68
--- NOTE | 2021-12-17 01:49 | NUR ---
NO ACUTE EVENTS THIS SHIFT. PT IS A&O X4, EXPRESSED NEEDS APPROPRIATELY. X1 ASSIST TO PIVIT TO COMMODE/WC. LEFT HAND CONTRACTED PT REPORTS IT IS "GETTING BETTER".
--- NOTE | 2021-12-17 07:46 | NUR ---
PT GETTING READY TO WORK WITH THERAPY AND WANTING SOMETHING FOR PAIN. ADM TYLENOL 325MG 2 TABS PO FOR PAIN TO LEFT LEG.
[2021-12-17 08:00] VITALS: BP 131/64
--- NOTE | 2021-12-17 10:42 | NUR ---
PT SITTING UP IN W/C. PT HAS CONTRACTED TO LEFT HAND FROM PREVIOUS STROKE. PT LUNGS CLEAR. PT DENIES ANY PAIN TO LEFT HIP. DRESSING INTACT NO SIGNS OF REDDNESS OR SWELLING. PT HAS MICAH HOSE AT BEDSIDE. PT IS ASSIST TO BATHROOM X1 WITH TRANSFER TO W/C TO BATHROOM.
--- NOTE | 2021-12-17 16:53 | NUR ---
CALLED DR. DAVILA OFFICE FOR WHEN DRESSING CAN BE CHANGED. MESSAGE WAS TEXTED TO
--- NOTE | 2021-12-17 19:44 | NUR ---
LEFT HIP DRESSING AND PEGGY REMOVED. 24 STABLES REMOVED, INCISION IS WELL APPROXIMATED WITH NO S/S OF INFECTION AT THIS TIME. SITE COVERED WITH SURGICAL DRESSING
[2021-12-17 19:51] VITALS: BP 119/52
[2021-12-18 08:20] VITALS: BP 126/77
[2021-12-18 19:45] VITALS: BP 146/77
[2021-12-19 07:20] VITALS: BP 150/75
--- NOTE | 2021-12-19 16:12 | NUR ---
Team meeting, recommendation: reported that daughter will be staying with her at dc. Has dme at home already. left side is affected from patient past cva few years ago. hip is open to air, stables taken out. Nick siddiqi (pt, ot, nursing). dc /. Cm visited with patient at bedside, she agreed with discharge plan.
--- NOTE | 2021-12-19 16:20 | NUR ---
PT PLEASANT AND COOPERATIVE. IS COMPLIANT WITH MEDICATIONS. REQUESTED TYLENOL FOR LOW BACK PAIN. TYLENOL EFFECTIVE FOR PAIN RELIEF. DID PARTICIPATE IN THERAPIES TODAY. LT HIP INCISION IS C/D/I WITHOUT S/S OF INFECTION. IS ALSO WELL APPROXIMATED. DRSG LEFT OFF IT WAS FALLING OFF AND INCISION WITHOUT DRAINAGE.
[2021-12-19 19:27] VITALS: BP 163/72
--- NOTE | 2021-12-19 20:49 | NUR ---
ASSUMED CARE ON 12/19/21 @1900, IN BED a&oX4 PLEASANT AFFECT NOTED, TRANSFERS FROM BED TO W/C WITH X1 ASSIST. LEFT SIDE WEAK.
[2021-12-20 10:40] VITALS: BP 129/66
--- NOTE | 2021-12-20 12:36 | NUR ---
PT PLEASANT AND COOPERATIVE. COMPLIANT WITH MEDICATIONS. HELD LOSARTAN THIS AM D/T PARAMETERS. TYLENOL EFFECTIVE FOR LOWER BACK PAIN. HAS PARTICIPATED IN THERAPIES. DENIES ANY OTHER NEEDS AT THIS TIME.
--- NOTE | 2021-12-20 16:16 | NUR ---
Cm called daughter rosa, she was not able to talk as she was driving. Daughter stated she will call back per rosa.
[2021-12-20 19:25] VITALS: BP 142/83
--- NOTE | 2021-12-21 00:07 | NUR ---
PT ASSESSMENT COMPLETED AND VSS. MEDS GIVEN ORDERED AND WELL TOLERATED. FALL PRECAUTIONS IN PLACE. SUPPORTIVE DAUGHTER IN TO SEE PT EARLY DURING SHIFT. UP TO THE BATHROOM USING GAIT/WHEELCHAIR/ASST. PT WENT TO SIT ON THE TOILET AND ALMOST MISSED THE SEAT. USING GAITBELT GUIDED PT TO SIT ON TOILET FOR SAFETY. TALKED WITH PT ABOUT SAFETY WHEN GETTING READY TO SIT ON THE TOILET. PT VOIDED LARGE AMOUNT OF YELLOW URINE. ASST WITH REPOSITION IN THE BED. SLEEPING WELL AT THIS TIME. WILL CONTINUE TO MONITOR FREQUENTLY.
[2021-12-21 07:30] VITALS: BP 180/80
--- NOTE | 2021-12-21 12:09 | NUR ---
FAXED REFERRAL TO [facility] RECEIVED CONFIRMATION ALSO FAXED REFERRAL TO [facility] RECEIVED CONFIRMATION AND FAXED REFERRAL TO [facility] RECEIVED CONFIRMATION AND [facility] RN/DIRECTOR STAFFING WILL F/U WITH THESE AGENCIES TO SEE WHO CAN ACCEPT. ANTICIPATE DC 12/25/21
--- NOTE | 2021-12-21 12:37 | NUR ---
PT ALERT AND ORIENTED, PLEASANT AND COOPERATIVE. COMPLIANT WITH MEDICATIONS. BP THIS AM WAS 180/80. RECHECKED AFTER BP MEDS GIVEN AND WAS 152/76. PT C/O SPASMS IN LUE AND LLE, STATING THEY STARTED YESTERDAY. BHUPENDRA OSBORNE, NOTIFIED OF THIS. HAS PARTICIPATED IN THERAPIES TODAY. DENIES PAIN OR DISCOMFORT.
[2021-12-21 20:42] VITALS: BP 165/71
[2021-12-22 00:01] VITALS: BP 171/99
[2021-12-22 00:14] VITALS: BP 165/71
[2021-12-22 01:00] VITALS: BP 160/70
--- NOTE | 2021-12-22 05:14 | NUR ---
PT ASSESSMENT COMPLETED AND VSS. MEDS GIVEN ORDERED AND WELL TOLERATED. FALL PRECAUTIONS IN PLACE. PT UP TO THE BATHROOM WITH ASST. PT WAS WITH FIELD ADJUSTER AND HAD AN ASSISTED FALL WHEN TRANSFERING BACK TO BED. NO INJURY. PT DENIES PAIN. INFORMED OVERNIGHT CASHIER ELIOT AND LEANN MCLAUGHLIN. PT SLEEPING WELL. VSS. WILL CONTINUE TO MONITOR FREQUENTLY.
[2021-12-22 08:00] VITALS: BP 127/86
--- NOTE | 2021-12-22 13:41 | NUR ---
THIS NURSE ASSUMED CARE OF PATIENT AT 0700. PATIENT A&O X 4, ON RA, AND CONTINENT OF BOWEL AND BLADDER. PATIENT EXPERIENCING LEG SPASMS IN LEFT LEG. PATIENT PIVOTS WITH ONE ASSIST AND GAIT BELT TO WHEELCHAIR. PATIENT DID VERY WELL WITH PARALLEL BARS WITH PT. DAUGHTER OF PATIENT AT BEDSIDE THIS MORNING. PATIENT HAS NO PAIN.
[2021-12-22 19:51] VITALS: BP 130/85
--- NOTE | 2021-12-23 03:35 | NUR ---
ASSUMED CARE AT 1915 OF 12/22. PATIENT IS A&OX4, ABLE TO MAKE NEEDS KNOWN. PATIENT'S DAUGHTER WAS PRESENT AT BEDSIDE EARLY IN THE EVENING. REPORTS PAIN IN LOW BACK AND LEFT HIP, PRN PAIN MEDICATION ADMINISTERED TO MANAGE PAIN. ASSISTED WITH REPOSITIONING WITH MINIMAL ASSIST. MINIMAL ASSIST WITH TRANSFER TO AND FROM W/C, USING GB. LEFT SIDED WEAKNESS PRESENT. FALL PRECAUTIONS IN PLACE, CALL LIGHT WITHIN REACH. WILL CONTINUE TO MONITOR.
[2021-12-23 07:38] VITALS: BP 129/86
[2021-12-23 12:01] VITALS: BP 129/86
--- NOTE | 2021-12-23 12:01 | NUR ---
[facility]. Dtr Juanita updated and she indicates preference for [facility]. She will call and make an appt with pt's pcp Dr. Meyer as well. Dc anticipated on Thursday12/25/21.
--- NOTE | 2021-12-23 12:34 | NUR ---
THIS NURSE ASSUMED CARE OF PATIENT AT 0700. PATIENT ALERT AND ORIENTED ON ROOM AIR. PATIENT CONTINENT OF BOTH BOWEL AND BLADDER. PATIENT LEARNING HOW TO STAND TALL AND NOT BUCKLE LEFT LEG WHILE STANDING. PATIENT AMBULATES WITH GAIT BELT AND WHEELCHAIR WITH PIVOT TO TOILET. PATIENT EXPERIENCES LEFT-SIDED WEAKNESS BUT IS COMPENSATING WELL. PATIENT IS ENCOURAGED WITH DISCHARGING PLANS AND IS COMMUNICATING NEEDS TO HER DAUGHTER.
--- NOTE | 2021-12-23 13:40 | NUR ---
Nutrition followup: pt continues on rehab unit S/P left hemiarthroplasty. Eating 50-100% of meals on Heart healthy diet. 12/22 BM. On vitamin D and folic acid supplementation for deficiency. Continue as low nutrition risk.
[2021-12-23 19:35] VITALS: BP 117/85
--- NOTE | 2021-12-23 21:44 | NUR ---
PT REMAIN ALERT AND ORIENT TIMES FOUR. UP IN WC TO BR WITH SBA/GB. VSS, AFEBRILE. C/O PAIN IN LOWER BACK, TYLENOL GIVEN WITH GOOD RELIEF. DAUGHTER AT THE BEDSIDE AT THE BEGINNING OF THE SHIFT. PT INFORMED TO SLOW DOWN. SLOW PROGRESS TOWARDS DC GOALS. WILL CONTINUE TO MONITOR.
== END 2021-12-24 | disposition home health service (06) | DRG 535 ==
PROVIDERS: Nurse Practitioner Family; ADMIT Physical Medicine & Rehabilitation; ATTEND Physical Medicine & Rehabilitation
DX: S72.002A Fracture of unspecified part of neck of left femur, initial encounter for closed fracture (principal); J18.9 Pneumonia, unspecified organism; J96.01 Acute respiratory failure with hypoxia; I69.354 Hemiplegia and hemiparesis following cerebral infarction affecting left non-dominant side; J44.0 Chronic obstructive pulmonary disease with (acute) lower respiratory infection; W18.30XA Fall on same level, unspecified, initial encounter; I95.9 Hypotension, unspecified; D64.9 Anemia, unspecified; M19.90 Unspecified osteoarthritis, unspecified site; D72.829 Elevated white blood cell count, unspecified; R26.9 Unspecified abnormalities of gait and mobility; F41.9 Anxiety disorder, unspecified; Z74.09 Other reduced mobility; Z96.642 Presence of left artificial hip joint; F32.A Depression, unspecified; E78.5 Hyperlipidemia, unspecified; I10 Essential (primary) hypertension; Z91.81 History of falling; Z92.89 Personal history of other medical treatment; Y92.89 Other specified places as the place of occurrence of the external cause; Y99.8 Other external cause status; Z87.891 Personal history of nicotine dependence; Z79.899 Other long term (current) drug therapy; Z79.82 Long term (current) use of aspirin; Z79.02 Long term (current) use of antithrombotics/antiplatelets
CPT/HCPCS: 10112